=== PATIENT | male | born 1955 | race Caucasian/White ===

== ENCOUNTER 2016-11-20 09:32 | Inpatient (IN) | payer MEDICARE, OTHER ==
[2016-11-20] MEDS ORDERED: LORazepam 2 MG/ML SYRINGE IV PRN (13:18)
[2016-11-20 13:41] LABS: Basophils % (A) 1 %; CH 33.1; CHCM 32.7; Eosinophils # (A) 0.1 k/uL (0-0.7); Eosinophils % (A) 1 %; HCT 43.3 % (39.0-53.0); HDW 2.67; HGB 13.9 gm/dL (13.0-17.5); Luc # (Auto) 0.14; Luc % (Auto) 2; Lymphocytes # (A) 2.2 k/uL (1.0-4.8); Lymphocytes % (A) 31 %; MCH 32.7 pg (25.0-35.0); MCHC 32.1 g/dL (31.0-37.0); MCV 101.7 fL (80.0-100.0); Macrocytosis Slight; Mean Platelet Volume 8.8; Monocytes # (A) 0.5 k/uL (0-1.0); Monocytes % (A) 8 %; Neutrophils % (A) 57 %; RBC 4.26 m/uL (4.30-5.90); RDW 14.9 % (11.5-15.5); WBC 6.9 k/uL (3.8-10.6); WBC (Perox) 7.43
[2016-11-20 14:20] LABS: ALT 30 U/L (21-72); AST 31 U/L (17-59); Alkaline Phosphatase 65 U/L (38-126); Anion Gap 8 mmol/L; Blood Urea Nitrogen 18 mg/dL (9-20); Calcium 9.2 mg/dL (8.4-10.2); Carbon Dioxide 33 mmol/L (22-30); Chloride 106 mmol/L (98-107); Glucose 116 mg/dL (74-99); Non-African American GFR(MDRD) >60 (>60 ml/min/1.73 sqM); Potassium 3.5 mmol/L (3.5-5.1); Sodium 147 mmol/L (137-145); Total Bilirubin 0.8 mg/dL (0.2-1.3); Total Protein 5.8 g/dL (6.3-8.2)
[2016-11-20] MEDS ORDERED: RX INFO: IV CONTRAST WAS GIVEN 1 EACH MISC MISCELLANE PRN (18:11)
--- NOTE | 2016-11-20 18:18 | P.HPIM ---
History of Present Illness H&P Date: 11/20/16 Chief Complaint: seizure activity patient is a 61-year-old male who presented to the office today stating that he had multiple seizures in the last few days he fell to the floor several times and was complaining of abrasion on his right elbow in both hands he was also complaining of rib pain and neck and lower back pain, he was admitted directly to [facility] medical floor, he is maintained on multiple seizure medications, levels on Depakote and Keppra were ordered, consultation was neurology was initiated, orders for Ativan when necessary were given for any evidence of seizure activity. Patient has a remote history of a benign brain tumor, he stated that he has not been following with any neurologist or neurosurgeon in that regard Past Medical History Past Medical History: Asthma, COPD, Eye Disorder, GERD/Reflux, Hyperlipidemia, Hypertension, Musculoskeletal Disorder, Osteoarthritis (OA), Pneumonia, Seizure Disorder, Thyroid Disorder Additional Past Medical History / Comment(s): Mental retardation, has been intubated and vented d/t COPD in past, 2001 CVA-pt thinks slight R arm/R leg weakness from that, PMH indicated DVT/PE/sublclavian blockage but pt unaware, iron defiency anemia, legally blind in left eye/limited vision R eye, bronchitis , hypothyroid, DJD, rectal bleed, BPH with surgery-pt states urinary flow is slowing down again, falls-fell yesterday and states he has neck and R rib pain since, injuries to L thumb and R little finger from falls, last seizure . 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 He has been told by his physician that he needs to start using a walker. He uses the bus to get places. He has a legal guardian, Isabella Ingram. He has had falls. Smoking Status: Current every day smoker Past Alcohol Use History: None Reported Additional Past Alcohol Use History / Comment(s): <ppd-caregiver not sure how long he's smoked Past Drug Use History: None Reported - Past Family History Mother Family Medical History: Cancer Additional Family Medical History / Comment(s): Mother had colon cancer. Father History Unknown: Yes Medications and Allergies Home Medications Medication Instructions Recorded Confirmed Type Docusate [Colace] 100 mg PO DAILY 08/25/14 11/20/16 History Omeprazole 40 mg PO AC-BRKFST 08/25/14 11/20/16 History Bisacodyl [Dulcolax] 10 mg PO DAILY 05/28/16 11/20/16 History Divalproex [Depakote] 1,000 mg PO HS 05/28/16 11/20/16 History Divalproex [Depakote] 500 mg PO QAM 05/28/16 11/20/16 History hydrOXYzine HCL [Atarax] 25 mg PO HS 05/28/16 11/20/16 History Atorvastatin Calcium [Lipitor] 10 mg PO HS 11/20/16 11/20/16 History Citalopram Hydrobromide [CeleXA] 20 mg PO HS 11/20/16 11/20/16 History QUEtiapine [SEROquel] 200 mg PO HS 11/20/16 11/20/16 History levETIRAcetam 1,000 mg PO Q12HR 11/20/16 11/20/16 History Allergies Allergy/AdvReac Type Severity Reaction Status Date / Time Penicillins Allergy Unknown Verified 11/20/16 11:01 Physical Exam Vitals: Vital Signs Temp Pulse Resp BP Pulse Ox 11/20/16 15:02 68 11/20/16 15:00 97.0 F L 62 16 110/53 94 L 11/20/16 12:00 99.4 F 68 136/78 Intake and Output 11/20/16 11/20/16 11/20/16 06:59 14:59 22:59 Intake Total 120 Balance 120 Intake: Oral 120 Other: # Voids 240 Weight 63.503 kg Patient Weight 11/21/16 06:59 Weight 63.503 kg in general patient is alert and oriented 3 in no apparent distress HEENT head normocephalic and nontraumatic Neck is supple no JVD no goiter no lymphadenopathy Chest exam reveals a few scattered rhonchi no wheezing Cardiac exam reveals regular heart sounds no gallops no murmurs Abdomen is soft nontender no organomegaly with normal bowel sounds Extremity exam reveals no edema no cyanosis or Clubbing Neurological examination reveals no gross focal deficits Results CBC & Chem 7: 11/20/16 13:23 11/20/16 13:23 Labs: Abnormal Lab Results - Last 24 Hours (Table) 11/20/16 11/20/16 Range/Units 13:23 13:23 RBC 4.26 L (4.30-5.90) m/uL MCV 101.7 H (80.0-100.0) fL Plt Count 111 L (150-450) k/uL Sodium 147 H (137-145) mmol/L Carbon Dioxide 33 H (22-30) mmol/L Glucose 116 H (74-99) mg/dL Total Protein 5.8 L (6.3-8.2) g/dL Thrombosis Risk Factor Assmnt - Choose All That Apply Any of the Below Risk Factors Present?: Yes Each Factor Represents 1 point: Abnormal pulmonary function (COPD) Other Risk Factors: Yes Each Risk Factor Represents 2 Points: Age 61-74 years Other congenital or acquired thrombophilia - If yes, enter type in comment: No Thrombosis Risk Factor Assessment Total Risk Factor Score: 3 Thrombosis Risk Factor Assessment Level: Moderate Risk Assessment and Plan Plan: #1 multiple seizures in the last few days with fall to the floor with subsequent abrasion 2 upper extremities and injury to the neck and lower back, at this time will check computed tomography scan of the cervical spine will check x-ray of the lumbar spine, will check bilateral ribs x-ray, will check level on Keppra and Depakote and consult neurology for follow-up #2 history of benign brain tumor will check computed tomography scan of the brain was contrast #3 underlying history of hyperlipidemia #4 underlying history of bipolar disorder maintained on Celexa and Seroquel #5 multiple abrasions was a mild cellulitis patient was started on Cleocin 150 mg 3 times daily, we will apply also local wound care #6 medication and labs were reviewed otherwise will continue was current management will follow in a.m.
[2016-11-20] MEDS: NEOMYCIN-BACITRACIN-POLY OINT 14 GM TUBE TOPICAL SCH (19:30)
[2016-11-20] MEDS: hydrOXYzine HCL 25 MG TAB PO SCH (20:37)
[2016-11-20] MEDS: CLINDAMYCIN 150 MG CAP PO SCH ×2 (20:37→20:39)
[2016-11-20] MEDS: ATORVASTATIN 10 MG TAB PO SCH (20:38)
[2016-11-20] MEDS: CITALOPRAM HYDROBROMIDE 20 MG TAB PO SCH (20:38)
[2016-11-20] MEDS: QUEtiapine 200 MG TAB PO SCH (20:38)
[2016-11-20] MEDS: DIVALPROEX 500 MG TABLET.DR PO SCH (20:38)
[2016-11-20] MEDS: levETIRAcetam 500 MG TAB PO SCH (20:38)
--- NOTE | 2016-11-20 20:43 | P.CNNES ---
History of Present Illness Consult date: 11/20/16 Reason for Consult: Patient with multiple seizures and history of brain tumor. History of Present Illness: This patient is a 61-year-old right-handed white male who was admitted to the hospital with breakthrough seizures. Patient has a long-standing history of underlying epilepsy. He has been treated for his epilepsy with 2 anticonvulsant medications namely Depakote and Keppra. Apparently yesterday he had a short seizure that may have lasted 10-15 minutes in duration. EMS was called to the home however he refused to go to the hospital yesterday. Apparently had another seizure today lasting several minutes. He apparently took a bus and went to see his primary care physician Dr. Bean would mitigate him to the hospital today. Patient underwent a Depakote level today which came back therapeutic at 72.5. Keppra level is pending at this time. Patient states he had been doing fairly well until recently with these recent breakthrough seizures. He does have a history of benign brain tumor resection done many years ago however he is unable to provide details of the tumor type or when the surgery was performed. Patient is somewhat developmentally delayed. He does follow some simple commands easily. Apparently he did sustain a fall and struck the back of his head. He is being sent for a computed tomography scan of the brain this evening and the results are pending at this time. Patient is also being sent for computed tomography scan of the cervical spine to rule out any subluxation or fracture. Patient denies any neck pain but does have some right-sided headache pain. He states he takes his seizure medications on a regular basis. He is unable to provide the exact date of his last seizure prior to yesterday. He does follow only simple commands. He denies any headache at this time. He is now been admitted and neurology has been consulted for further evaluation and recommendations. Review of Systems Constitutional: Denies chills, Denies fever Eyes: denies blurred vision, denies pain Ears, nose, mouth and throat: Denies headache, Denies sore throat Cardiovascular: Denies chest pain, Denies shortness of breath Respiratory: Denies cough Gastrointestinal: Denies abdominal pain, Denies diarrhea, Denies nausea, Denies vomiting Musculoskeletal: Denies myalgias Integumentary: Denies pruritus, Denies rash Neurological: Denies numbness, Denies weakness Psychiatric: Reports confusion, Reports disorientation, Reports memory loss, Denies anxiety, Denies depression Endocrine: Denies fatigue, Denies weight change Past Medical History Past Medical History: Asthma, COPD, Eye Disorder, GERD/Reflux, Hyperlipidemia, Hypertension, Musculoskeletal Disorder, Osteoarthritis (OA), Pneumonia, Seizure Disorder, Thyroid Disorder Additional Past Medical History / Comment(s): Mental retardation, has been intubated and vented d/t COPD in past, 2001 CVA-pt thinks slight R arm/R leg weakness from that, PMH indicated DVT/PE/sublclavian blockage but pt unaware, iron defiency anemia, legally blind in left eye/limited vision R eye, bronchitis , hypothyroid, DJD, rectal bleed, BPH with surgery-pt states urinary flow is slowing down again, falls-fell yesterday and states he has neck and R rib pain since, injuries to L thumb and R little finger from falls, last seizure . 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 He has been told by his physician that he needs to start using a walker. He uses the bus to get places. He has a legal guardian, Isabella Ingram. He has had falls. Smoking Status: Current every day smoker Past Alcohol Use History: None Reported Additional Past Alcohol Use History / Comment(s): <ppd-caregiver not sure how long he's smoked Past Drug Use History: None Reported - Past Family History Mother Family Medical History: Cancer Additional Family Medical History / Comment(s): Mother had colon cancer. Father History Unknown: Yes Medications and Allergies Home Medications Medication Instructions Recorded Confirmed Type Docusate [Colace] 100 mg PO DAILY 08/25/14 11/20/16 History Omeprazole 40 mg PO AC-BRKFST 08/25/14 11/20/16 History Bisacodyl [Dulcolax] 10 mg PO DAILY 05/28/16 11/20/16 History Divalproex [Depakote] 1,000 mg PO HS 05/28/16 11/20/16 History Divalproex [Depakote] 500 mg PO QAM 05/28/16 11/20/16 History hydrOXYzine HCL [Atarax] 25 mg PO HS 05/28/16 11/20/16 History Atorvastatin Calcium [Lipitor] 10 mg PO HS 11/20/16 11/20/16 History Citalopram Hydrobromide [CeleXA] 20 mg PO HS 11/20/16 11/20/16 History QUEtiapine [SEROquel] 200 mg PO HS 11/20/16 11/20/16 History levETIRAcetam 1,000 mg PO Q12HR 11/20/16 11/20/16 History Allergies Allergy/AdvReac Type Severity Reaction Status Date / Time Penicillins Allergy Unknown Verified 11/20/16 11:01 Physical Examination - Vital Signs Vital Signs: Vital Signs Temp Pulse Resp BP Pulse Ox 11/20/16 15:02 68 11/20/16 15:00 97.0 F L 62 16 110/53 94 L 11/20/16 12:00 99.4 F 68 136/78 Intake and Output 11/20/16 11/20/16 11/20/16 06:59 14:59 22:59 Intake Total 120 Balance 120 Intake: Oral 120 Other: # Voids 240 Weight 63.503 kg Patient Weight 11/21/16 06:59 Weight 63.503 kg - Constitutional General appearance: average body habitus, cooperative - EENT EENT: PERRL, mucous membranes moist - Respiratory Respiratory: lungs clear, normal breath sounds - Cardiovascular Cardiovascular: regular rate, normal S1, normal S2 Extremities: no peripheral edema bilaterally - Gastrointestinal Gastrointestinal: normoactive bowel sounds - Integumentary Integumentary: normal - Neurologic Cranial nerve examination: PERRL, EOMI, VFF, V1/V2/V3 grossly intact, face symmetric, tongue midline, intact gag reflex, intact corneal reflex, normal palatal elevation Speech examination: intact Sensorimotor examination: intact Detailed motor examination: grossly full strength in all extremities Detailed sensory examination: intact Reflex and gait examination: intact Reflexes: 1+: ankle, bicep, knee, tricep - Musculoskeletal Musculoskeletal: no pain - Psychiatric Psychiatric: mood/affect appropriate, cooperative Results - Laboratory Findings CBC and BMP: 11/20/16 13:23 11/20/16 13:23 Abnormal Lab Findings: Abnormal Labs 11/20/16 11/20/16 13:23 13:23 RBC 4.26 L MCV 101.7 H Plt Count 111 L Sodium 147 H Carbon Dioxide 33 H Glucose 116 H Total Protein 5.8 L Assessment and Plan (1) Seizure disorder, complex partial Status: Acute Code(s): G40.209 - LOCAL-REL SYMPTC EPI W CMPLX PRT SEIZ,NOT NTRCT,W/O STAT EPI (2) Acute psychosis Status: Acute Code(s): F23 - BRIEF PSYCHOTIC DISORDER (3) Acute anxiety Status: Acute Code(s): F41.9 - ANXIETY DISORDER, UNSPECIFIED (4) Bipolar disorder Status: Acute Code(s): F31.9 - BIPOLAR DISORDER, UNSPECIFIED Plan: This patient is a 61-year-old male who has a history of underlying seizure disorder. He is undergone surgical resection of a probable benign tumor years ago. Patient is unable to provide details of his surgery or location of the tumor removal. He underwent a computed tomography scan of the brain today the results of which are pending. Given the finding of a normal Depakote level of 72.5 and Keppra level that is pending at this time there is concern for breakthrough seizures for this patient. We will recheck his anticonvulsant blood levels tomorrow morning. We'll obtain routine EEG tomorrow morning for further assessment. Would recommend MRI of the brain with gadolinium to rule out any new or acute brain tumor. His overall prognosis at this time remains very guarded. He should continue with seizure precautions during this admission. Case was discussed at length with the patient. All questions were answered to his satisfaction. We will continue close neurological follow-up of this patient during this admission. Time with Patient: Greater than 30
--- NOTE | 2016-11-20 21:10 | CT ---
EXAMINATION TYPE: CT brain w con DATE OF EXAM: 11/20/2016 8:29 PM COMPARISON: 11/02/2010 INDICATION: Seizure disorder. Neck pain. History of benign brain tumor. DLP: 1625.00 mGycm, Automated exposure control for dose reduction was used. CONTRAST: None CT of the brain is performed utilizing 3 mm thick sections through the posterior fossa and 3 mm thick sections through the remaining calvarium. Study is performed within 24 hours of arrival to the hosp [facility]. No abnormal hyperdensity is present to suggest an acute intracranial hemorrhage. No mass lesion is evident. No acute infarcts are evident. Ventricles and sulci are appropriate for the patient age. Paranasal sinuses and mastoid air cells within the [id number] are clear. No abnormal enhancement is evident. IMPRESSIONS: 1. No acute intracranial process.
--- NOTE | 2016-11-20 21:13 | CT ---
EXAMINATION TYPE: CT cervical spine wo con DATE OF EXAM: 11/20/2016 8:29 PM COMPARISON: NONE HISTORY: Seizure disorder. Neck pain. History of benign brain tumor. CT DLP: 1625.00 mGycm Automated exposure control for dose reduction was used. TECHNIQUE: CT scan of the cervical spine is obtained without contrast, axial images are obtained, sa gittal and coronal reformatted images are also reviewed. FINDINGS: C6-7 may has some broad-based left paracentral disc bulge. Cervical correlation is recommen ded. MRI could be performed if clinically indicated. No acute fractures are evident. No spinal canal stenosis is present. Degenerative disc changes are pr esent C5-C6. Some scoliosis is present which can be positional. There is straightening of the cervica l spine in the sagittal plane which may be positional. Minimal retrolisthesis of C5 on C6 is present can be related to degenerative changes. Loss of disc height C5-6. IMPRESSION: 1. Degenerative disc changes C5-6. A minimal grade 1 retrolisthesis of C5 on C6 may be present. 2. Straightening of the cervical spine on the sagittal projection with some scoliosis present in the coronal plane. 3. Some left paracentral disc bulging may be present at C5-C6.
[2016-11-21] MEDS: LEVOTHYROXINE 25 MCG TAB PO SCH (06:20)
[2016-11-21] MEDS: CLINDAMYCIN 150 MG CAP PO SCH ×3 (07:30→21:15)
[2016-11-21] MEDS: levETIRAcetam 500 MG TAB PO SCH ×2 (07:31→21:15)
[2016-11-21] MEDS: PANTOPRAZOLE 40 MG TABLET PO SCH (07:31)
[2016-11-21] MEDS: ASPIRIN 81 MG CHEW PO SCH (07:31)
[2016-11-21] MEDS: DOCUSATE 100 MG CAP PO SCH (07:31)
[2016-11-21] MEDS: DIVALPROEX 500 MG TABLET.DR PO SCH ×2 (07:31→21:16)
[2016-11-21] MEDS: NEOMYCIN-BACITRACIN-POLY OINT 14 GM TUBE TOPICAL SCH (07:32)
[2016-11-21] MEDS: BISACODYL 5 MG TABLET.DR PO SCH (07:35)
[2016-11-21 09:13] LABS: Basophils % (A) 0 %; CHCM 33.8; Eosinophils # (A) 0.2 k/uL (0-0.7); Eosinophils % (A) 3 %; HCT 40.6 % (39.0-53.0); HDW 2.79; HGB 13.7 gm/dL (13.0-17.5); Luc # (Auto) 0.17; Luc % (Auto) 3; Lymphocytes # (A) 2.2 k/uL (1.0-4.8); Lymphocytes % (A) 37 %; MCHC 33.7 g/dL (31.0-37.0); MCV 97.8 fL (80.0-100.0); Mean Platelet Volume 8.4; Monocytes # (A) 0.6 k/uL (0-1.0); Monocytes % (A) 10 %; Neutrophils # (A) 2.7 k/uL (1.3-7.7); Neutrophils % (A) 47 %; RBC 4.15 m/uL (4.30-5.90); RDW 14.6 % (11.5-15.5); WBC 5.8 k/uL (3.8-10.6); WBC (Perox) 5.68
[2016-11-21 10:17] LABS: ALT 29 U/L (21-72); AST 27 U/L (17-59); Alkaline Phosphatase 64 U/L (38-126); Anion Gap 8 mmol/L; Blood Urea Nitrogen 18 mg/dL (9-20); Calcium 8.9 mg/dL (8.4-10.2); Carbon Dioxide 33 mmol/L (22-30); Chloride 105 mmol/L (98-107); Glucose 83 mg/dL (74-99); Non-African American GFR(MDRD) >60 (>60 ml/min/1.73 sqM); Potassium 3.6 mmol/L (3.5-5.1); Sodium 146 mmol/L (137-145); Total Bilirubin 0.8 mg/dL (0.2-1.3); Total Protein 5.5 g/dL (6.3-8.2)
--- NOTE | 2016-11-21 11:48 | P.PN ---
Subjective Breakthrough seizure Patient has had no seizures through the night. EEG completed this morning. Awaiting results. MRI of the brain scheduled this afternoon. Patient denies any chest pain or shortness of breath. Denies any nausea or vomiting. Has regular bowel movement. Denies any difficulty urinating. Objective - Vital Signs Vital signs: Vital Signs Temp 97.9 F 11/21/16 07:00 Pulse 70 11/21/16 08:00 Resp 16 11/21/16 08:00 BP 114/64 11/21/16 07:00 Pulse Ox 93 L 11/21/16 07:00 Intake & Output 11/20/16 11/21/16 11/21/16 18:59 06:59 18:59 Intake Total 120 50 Output Total 100 100 Balance 120 -50 -100 Weight 63.503 kg 63.503 kg Intake: Oral 120 50 Output: Urine 100 100 Other: # Voids 240 3 - Exam Head normocephalic Neck supple Lungs clear to auscultation bilaterally no wheezing or crackles Heart regular rate and rhythm S1-S2, no rub or gallop Abdomen is soft nontender nondistended positive bowel sounds no hepatosplenomegaly Extremities no edema Neuro alert and orientated to 3 - Labs CBC & Chem 7: 11/21/16 07:27 11/21/16 07:27 Labs: Abnormal Lab Results - Last 24 Hours (Table) 11/20/16 11/20/16 11/21/16 Range/Units 13:23 13:23 07:27 RBC 4.26 L 4.15 L (4.30-5.90) m/uL MCV 101.7 H (80.0-100.0) fL Plt Count 111 L 112 L (150-450) k/uL Sodium 147 H (137-145) mmol/L Carbon Dioxide 33 H (22-30) mmol/L Glucose 116 H (74-99) mg/dL Total Protein 5.8 L (6.3-8.2) g/dL Albumin (3.5-5.0) g/dL 11/21/16 Range/Units 07:27 RBC (4.30-5.90) m/uL MCV (80.0-100.0) fL Plt Count (150-450) k/uL Sodium 146 H (137-145) mmol/L Carbon Dioxide 33 H (22-30) mmol/L Glucose (74-99) mg/dL Total Protein 5.5 L (6.3-8.2) g/dL Albumin 3.2 L (3.5-5.0) g/dL Assessment and Plan Plan: 1. Seizure disorder with breakthrough seizures: Neurology consulted. Patient scheduled for EEG and MRI of the brain today. Keppra level pending. Depakote level within normal range. Patient had computed tomography scan of the brain which was negative. Computed tomography scan of the spine showed degenerative changes and disc bulge at seen 5 to C6. #2 history of benign brain tumor MRI of the brain ordered by neurology #3 underlying history of hyperlipidemia #4 underlying history of bipolar disorder maintained on Celexa and Seroquel #5 multiple abrasions was a mild cellulitis patient was started on Cleocin 150 mg 3 times daily, we will apply also local wound care #6 nicotine dependence: Discussed smoking cessation. Add nicotine patch Consult physical therapy I performed an examination of the patient and discussed their management with the physician Splitter Operator. I have reviewed the Physician Splitter Operator's notes and agree with the documented findings and plan of care
[2016-11-21] MEDS: NICOTINE 21MG/24HR PATCH TRANSDERM SCH (12:24)
--- NOTE | 2016-11-21 17:43 | MR ---
EXAMINATION TYPE: MR brain wo/w con DATE OF EXAM: 11/21/2016 4:59 PM COMPARISON: CT brain 11/20/2016 HISTORY: Brain tumor, seizures CONTRAST: Performed utilizing 15 mL intravenous MultiHance gadolinium contrast. TECHNIQUE: Multiplanar, multiecho imaging on a 3.0 Heike magnet is performed through the brain. Stud y is performed within 24 hours of arrival to the hospital. The craniovertebral junction is normal. The pituitary is normal. Temporal lobes are symmetrical. Diffusion-weighted imaging is performed. No abnormal hyperintensity is present to suggest an acute i ntracranial infarct or acute ischemic change. There are scattered punctate areas of hyperintensity on T2 and Inversion Recovery weighted sequences which are non-specific but can be related to microvascular ischemic changes. Ventricles and sulci are prominent for the patient age. Focal encephalomalacia is not evident. There is some prominence of the right cerebellar pontine angle . The lesion is reported to be in the left posterior parietal-occipital region. The hypointense signa l within this region on inversion recovery weighted sequences and hyperintense signal on T2-weighted sequences appears stable. This measures 1.0 cm in length. No suspicious enhancement is evident. IMPRESSIONS: 1. Mild periventricular white matter changes. 2. Atrophy. 3. Stable signal changes within the left occipital region vertex.
[2016-11-21] MEDS: ATORVASTATIN 10 MG TAB PO SCH (21:15)
[2016-11-21] MEDS: CITALOPRAM HYDROBROMIDE 20 MG TAB PO SCH (21:16)
[2016-11-21] MEDS: QUEtiapine 200 MG TAB PO SCH (21:16)
[2016-11-21] MEDS: hydrOXYzine HCL 25 MG TAB PO SCH (21:16)
--- NOTE | 2016-11-21 22:37 | P.PN ---
Subjective This patient is a 61-year-old male who was admitted yesterday for symptoms of breakthrough seizures. Patient has a history of underlying seizure disorder. He has been treated for his seizures and is currently taking combination of Depakote and Keppra. He was admitted to hospital yesterday after suffering 2 breakthrough seizures. His Depakote level yesterday on admission was therapeutic. He underwent repeat anticonvulsant blood levels this morning and his Depakote level remains therapeutic at 87.1. His Keppra level came back therapeutic at 33.7. Patient was sent for MRI of the brain today for further evaluation. MRI reveals periventricular white matter changes. There was cortical atrophy noted. Stable signal changes were noted in the left occipital lobe. The patient was also sent for routine EEG today. He has remained seizure -free since admission yesterday. His EEG was reviewed and fails to reveal any evidence of underlying seizure disorder. As noted both of his anticonvulsant medications are also in the normal level. We will continue close neurological follow-up for this patient. Hopefully patient will be able to be discharged home tomorrow. His overall prognosis at this time remains guarded. Objective - Vital Signs Vital signs: Vital Signs Temp 99.2 F 11/21/16 15:00 Pulse 88 11/21/16 15:43 Resp 18 11/21/16 15:43 BP 110/50 11/21/16 15:00 Pulse Ox 92 L 11/21/16 15:00 Intake & Output 11/21/16 11/21/16 11/22/16 06:59 18:59 06:59 Intake Total 50 850 Output Total 100 300 Balance -50 550 Weight 63.503 kg Intake: Oral 50 850 Output: Urine 100 300 Other: Voiding Method Toilet # Voids 3 3 - Exam Physical examination: PHYSICAL EXAMINATION: Patient is resting comfortably in bed. VITAL SIGNS: Blood pressure is [110/50]. Heart rate is [88]. Respiration is [18] . Temperature is [99.2]. HEENT: Head is atraumatic, neck is supple, there were no carotid bruits. CHEST: Lungs are clear to auscultation and percussion. CARDIAC: S1, S2 normal rate and rhythm. There is no murmur. ABDOMEN: Soft and nontender. Bowel sounds are present. EXTREMITIES: There is no pedal edema. Peripheral pulses are present. Neurological examination: Patient's neurological examination is unchanged from yesterday. There is been no significant changes in his overall neurological examination today. - Labs CBC & Chem 7: 11/21/16 07:27 11/21/16 07:27 Labs: Abnormal Lab Results - Last 24 Hours (Table) 11/21/16 11/21/16 Range/Units 07: 07:27 RBC 4.15 L (4.30-5.90) m/uL Plt Count 112 L (150-450) k/uL Sodium 146 H (137-145) mmol/L Carbon Dioxide 33 H (22-30) mmol/L Total Protein 5.5 L (6.3-8.2) g/dL Albumin 3.2 L (3.5-5.0) g/dL Assessment and Plan (1) Seizure disorder, complex partial Status: Acute Code(s): G40.209 - LOCAL-REL SYMPTC EPI W CMPLX PRT SEIZ,NOT NTRCT,W/O STAT EPI (2) Acute psychosis Status: Acute Code(s): F23 - BRIEF PSYCHOTIC DISORDER (3) Acute anxiety Status: Acute Code(s): F41.9 - ANXIETY DISORDER, UNSPECIFIED (4) Bipolar disorder Status: Acute Code(s): F31.9 - BIPOLAR DISORDER, UNSPECIFIED Plan: This patient is a 61-year-old male being evaluated for recent breakthrough seizures. Patient underwent anticonvulsant blood testing today and his Depakote level is therapeutic at 87.1. Keppra level is also therapeutic at 33.7. He underwent a routine EEG today which is reviewed and is negative for any evidence of underlying seizure focus. No epileptiform discharges were seen. All of his test results were discussed today with the patient in detail. He is being considered for possible discharge home tomorrow. We will continue to follow his overall progress closely during this admission. Patient is advised of the [place] driving law which states he should not drive prepared to 6 months following his last seizure. He states he is aware of this driving restriction for seizure patients. His overall prognosis at this time remains guarded.
[2016-11-22] MEDS: LEVOTHYROXINE 25 MCG TAB PO SCH (06:09)
[2016-11-22] MEDS: PANTOPRAZOLE 40 MG TABLET PO SCH (06:58)
[2016-11-22] MEDS: BISACODYL 5 MG TABLET.DR PO SCH (06:59)
[2016-11-22] MEDS: ASPIRIN 81 MG CHEW PO SCH (06:59)
[2016-11-22] MEDS: CLINDAMYCIN 150 MG CAP PO SCH (06:59)
[2016-11-22] MEDS: DIVALPROEX 500 MG TABLET.DR PO SCH (07:00)
[2016-11-22] MEDS: levETIRAcetam 500 MG TAB PO SCH (07:00)
[2016-11-22] MEDS: DOCUSATE 100 MG CAP PO SCH (07:01)
[2016-11-22] MEDS: NEOMYCIN-BACITRACIN-POLY OINT 14 GM TUBE TOPICAL SCH (07:01)
[2016-11-22] MEDS: NICOTINE 21MG/24HR PATCH TRANSDERM SCH (07:02)
[2016-11-22 07:40] LABS: Basophils % (A) 0 %; CH 33.4; CHCM 33.8; Eosinophils # (A) 0.1 k/uL (0-0.7); Eosinophils % (A) 2 %; HCT 41.7 % (39.0-53.0); HGB 13.8 gm/dL (13.0-17.5); Luc # (Auto) 0.18; Luc % (Auto) 3; Lymphocytes # (A) 2.2 k/uL (1.0-4.8); Lymphocytes % (A) 37 %; MCH 32.8 pg (25.0-35.0); MCHC 33.1 g/dL (31.0-37.0); MCV 99.2 fL (80.0-100.0); Mean Platelet Volume 8.5; Monocytes # (A) 0.6 k/uL (0-1.0); Monocytes % (A) 10 %; Neutrophils # (A) 2.9 k/uL (1.3-7.7); Neutrophils % (A) 48 %; RBC 4.21 m/uL (4.30-5.90); RDW 14.7 % (11.5-15.5); WBC (Perox) 5.84
[2016-11-22 07:50] VITALS: BP 125/57; PULSE 70; RESP 16; TEMP 97.7
[2016-11-22 07:58] LABS: ALT 31 U/L (21-72); AST 26 U/L (17-59); Alkaline Phosphatase 63 U/L (38-126); Anion Gap 6 mmol/L; Blood Urea Nitrogen 23 mg/dL (9-20); Carbon Dioxide 33 mmol/L (22-30); Chloride 106 mmol/L (98-107); Glucose 85 mg/dL (74-99); Non-African American GFR(MDRD) >60 (>60 ml/min/1.73 sqM); Potassium 4.1 mmol/L (3.5-5.1); Sodium 145 mmol/L (137-145); Total Bilirubin 0.8 mg/dL (0.2-1.3); Total Protein 5.9 g/dL (6.3-8.2)
--- NOTE | 2016-11-22 11:14 | EEG ---
DATE OF SERVICE: 11/21/2016 INDICATIONS FOR EXAMINATION: This patient is a 61-year-old male admitted with breakthrough seizures. AGE: 61Y EEG FINDINGS: A routine 21-channel, awake digital EEG recording was accomplished utilizing the 10 - 20 international system with bipolar and referential montages. The background activity in the most alert resting state consists of a low to medium amplitude, fairly well-developed and well-sustained 6 - 7 Hz activity over the posterior head regions. This posterior rhythm attenuates to eye opening. There is a small amount of low amplitude 18 - 20 Hz beta activity seen maximally over the anterior head regions. Muscle and movement artifact was observed on several occasions during the tracing. Hyperventilation was not performed. Photic stimulation at flash frequencies of 2 - 30 Hz produced a minimal occipital driving response. On one occasion, a generalized sharp wave was noted. No muscle equivalent changes were noted. IMPRESSION: This EEG is moderately abnormal in diffuse fashion due to slowing of the EEG background. The EEG failed to reveal any focal, lateralized or epileptiform abnormalities. Clinical correlation is recommended.
--- NOTE | 2016-11-22 11:52 | P.DS ---
Providers Date of admission: 11/20/16 09:46 Expected date of discharge: 11/22/16 Attending physician: Caesar Bean Consults: 11/20/16 13:16 Consult Physician Routine Consulting Provider: Shwetha Hernandes Consult Reason/Comments: multiple seizures Do you want consulting provider notified?: Yes Primary care physician: Caesar Vikas [facility] Course: Discharge diagnosis 1. Seizure disorder, complex partial with breakthrough seizures: Evaluated by neurology. Keppra and Depakote levels within normal range. Patient had computed tomography scan of the brain which was negative. Computed tomography scan of the spine showed degenerative changes and disc bulge at C 5 to C6. EEG negative for any seizure activity. MRI of the brain shows mild periventricular white matter changes, atrophy, stable signal changes within the left occipital region vertex. #2 history of benign brain tumor MRI of the brain ordered by neurology #3 underlying history of hyperlipidemia #4 underlying history of bipolar disorder maintained on Celexa and Seroquel #5 multiple abrasions was a mild cellulitis patient was started on Cleocin 150 mg 3 times daily continue for 5 days #6 nicotine dependence: Discussed smoking cessation. Hospital course This is a 61-year-old male who has a known seizure disorder who initially presented to Dr. Monisha pedraza's office after having multiple seizures in the last few days. He also had fallen to the floor several times and was complaining of abrasions on the right elbow and hands. He also had some neck lower back pain and rib pain. He was admitted to [facility]. Neurology was consulted. Depakote and Keppra levels checked and were within normal range. Computed tomography scan of the brain was negative. Computed tomography scan of the cervical spine had shown degenerative disease disc changes and disc bulge at C5 and C6. EEG negative for any seizure activity. MRI of the brain shows mild periventricular white matter changes, atrophy, stable signal changes within the left occipital region vertex. Patient has had no further seizure activity. He is stable for discharge. His pain has resolved. He will continue Cleocin for 5 more days for his mild cellulitis and abrasion on the hands and elbow. Evaluated by physical therapy and they're recommending walker. Prescription for walker was given to the complex case manager. Patient is medical stable for discharge. Patient again was notified with the [place] driving law that she cannot drive 6 months after having a seizure. Patient is aware of this. Please refer to chart for any further details. Patient will follow-up with Dr. Bean in 1 week. Patient Condition at Discharge: Stable Plan - Discharge Summary New Discharge Prescriptions: Clindamycin [Cleocin] 150 mg PO TID #15 cap Discharge Medication List Aspirin EC [Ecotrin Low Dose] 81 mg PO DAILY #30 tablet. 04/11/14 [Rx] Levothyroxine Sodium [Synthroid] 25 mcg PO DAILY #30 tab 04/11/14 [Rx] Docusate [Colace] 100 mg PO DAILY 08/25/14 [History] Omeprazole 40 mg PO AC-BRKFST 08/25/14 [History] Bisacodyl [Dulcolax] 10 mg PO DAILY 05/28/16 [History] Divalproex [Depakote] 1,000 mg PO HS 05/28/16 [History] Divalproex [Depakote] 500 mg PO QAM 05/28/16 [History] hydrOXYzine HCL [Atarax] 25 mg PO HS 05/28/16 [History] Atorvastatin Calcium [Lipitor] 10 mg PO HS 11/20/16 [History] Citalopram Hydrobromide [CeleXA] 20 mg PO HS 11/20/16 [History] QUEtiapine [SEROquel] 200 mg PO HS 11/20/16 [History] levETIRAcetam 1,000 mg PO Q12HR 11/20/16 [History] Clindamycin [Cleocin] 150 mg PO TID #15 cap 11/22/16 [Rx] Follow up Appointment(s)/Referral(s): Caesar Bean MD [Primary Care Provider] - 1 Week Activity/Diet/Wound Care/Special Instructions: [facility]-[phone] Diet:Regular Activity: as tolerated. No driving for 6 months Discharge Disposition: HOME WITH HOME HEALTH SERVICES
== END 2016-11-22 14:00 | disposition home health service (06) | DRG 101 ==
LOC: 5MS5E 09:46
PROVIDERS: ADMIT Internal Medicine; ATTEND Internal Medicine
DX: G40.209 Localization-related (focal) (partial) symptomatic epilepsy and epileptic syndromes with complex partial seizures, not intractable, without status epilepticus (principal); F25.9 Schizoaffective disorder, unspecified; I10 Essential (primary) hypertension; L03.113 Cellulitis of right upper limb; L03.114 Cellulitis of left upper limb; E03.9 Hypothyroidism, unspecified; E78.5 Hyperlipidemia, unspecified; F17.200 Nicotine dependence, unspecified, uncomplicated; F31.9 Bipolar disorder, unspecified; F41.9 Anxiety disorder, unspecified; F79 Unspecified intellectual disabilities; H54.42 Blindness, left eye, normal vision right eye; J44.9 Chronic obstructive pulmonary disease, unspecified; J45.909 Unspecified asthma, uncomplicated; K21.9 Gastro-esophageal reflux disease without esophagitis; N40.0 Benign prostatic hyperplasia without lower urinary tract symptoms; S50.311A Abrasion of right elbow, initial encounter; W18.30XA Fall on same level, unspecified, initial encounter; Z79.899 Other long term (current) drug therapy; Z86.011 Personal history of benign neoplasm of the brain; Z86.73 Personal history of transient ischemic attack (TIA), and cerebral infarction without residual deficits
CPT/HCPCS: 70460; 70553; 72125; 80053; 80164; 80177; 85025; 95816

== ENCOUNTER 2016-12-03 16:25 | Emergency (ER) | payer MEDICARE, OTHER ==
--- NOTE | 2016-12-03 16:47 | ED ---
General Adult HPI - General Chief complaint: Psychiatric Symptoms Stated complaint: Mental Health Time Seen by Provider: 12/03/16 16:27 Source: patient, EMS, RN notes reviewed Mode of arrival: EMS Limitations: no limitations - History of Present Illness Initial comments: 61-year-old male presents emergency department via EMS for increased weakness. Patient apparently tried to flag down EMS yesterday as he thought this was large transit. EMS did discuss with the oracle business analyst that the patient normally patient states he feels very weak and states that he has lower extremity weakness states it is unable to barely move them. Patient denies any depression or suicidal thoughts. Patient does admit to some intermittent confusion. Patient denies chest pain or shortness breath. Patient denies any alcohol or any drug use. does ride the bus and has been having increased weakness and some confusion. - Related Data Home Medications Medication Instructions Recorded Confirmed Docusate [Colace] 100 mg PO DAILY 08/25/14 12/03/16 Omeprazole 40 mg PO AC-BRKFST 08/25/14 12/03/16 Bisacodyl [Dulcolax] 10 mg PO DAILY 05/28/16 12/03/16 Divalproex [Depakote] 1,000 mg PO HS 05/28/16 12/03/16 Divalproex [Depakote] 500 mg PO QA 05/28/16 12/03/16 hydrOXYzine HCL [Atarax] 25 mg PO HS 05/28/16 12/03/16 Atorvastatin Calcium [Lipitor] 10 mg PO HS 11/20/16 12/03/16 Citalopram Hydrobromide [CeleXA] 20 mg PO HS 11/20/16 12/03/16 QUEtiapine [SEROquel] 200 mg PO HS 11/20/16 12/03/16 levETIRAcetam 1,000 mg PO Q12HR 11/20/16 12/03/16 busPIRone HCL [Buspar] 30 mg PO BID 12/03/16 12/03/16 Previous Rx's Medication Instructions Recorded Aspirin EC [Ecotrin Low Dose] 81 mg PO DAILY #30 tablet. 04/11/14 Levothyroxine Sodium [Synthroid] 25 mcg PO DAILY #30 tab 04/11/14 Allergies Allergy/AdvReac Type Severity Reaction Status Date / Time Penicillins Allergy Unknown Verified 12/03/16 16:46 Review of Systems ROS Statement: Those systems with pertinent positive or pertinent negative responses have been documented in the HPI. ROS Other: All systems not noted in ROS Statement are negative. Past Medical History Past Medical History: Asthma, COPD, Eye Disorder, GERD/Reflux, Hyperlipidemia, Hypertension, Musculoskeletal Disorder, Osteoarthritis (OA), Pneumonia, Seizure Disorder, Thyroid Disorder Additional Past Medical History / Comment(s): Mental retardation, has been intubated and vented d/t COPD in past, 2001 CVA-pt thinks slight R arm/R leg weakness from that, PMH indicated DVT/PE/sublclavian blockage but pt unaware, iron defiency anemia, legally blind in left eye/limited vision R eye, bronchitis , hypothyroid, DJD, rectal bleed, BPH with surgery-pt states urinary flow is slowing down again, falls-fell yesterday and states he has neck and R rib pain since, injuries to L thumb and R little finger from falls, last seizure . History of Any Multi-Drug Resistant Organisms: None Reported Past Surgical History: Prostate Surgery Additional Past Surgical History / Comment(s): Cystoscopy/TURP, EGD/colonoscopy with benign polypectomy, hemorrhoidectomy, L toes repaired-partial amp, Past Anesthesia/Blood Transfusion Reactions: No Reported Reaction Past Psychological History: Bipolar, Depression, Schizoaffective Disorder Additional Psychological History / Comment(s): Pt now resides with his process line operator. He has been told by his physician that he needs to start using a walker. He uses the bus to get places. He has a legal guardian, Isabella Ingram. He has had falls. Smoking Status: Current every day smoker Past Alcohol Use History: None Reported Additional Past Alcohol Use History / Comment(s): <ppd-caregiver not sure how long he's smoked Past Drug Use History: None Reported - Past Family History Mother Family Medical History: Cancer Additional Family Medical History / Comment(s): Mother had colon cancer. Father History Unknown: Yes General Exam Limitations: no limitations General appearance: alert, in no apparent distress Head exam: Present: atraumatic, normocephalic, normal inspection Eye exam: Present: normal appearance, PERRL, EOMI. Absent: scleral icterus, conjunctival injection, periorbital swelling ENT exam: Present: mucous membranes moist. Absent: normal exam, normal oropharynx Neck exam: Present: normal inspection. Absent: tenderness, meningismus, lymphadenopathy Respiratory exam: Present: normal lung sounds bilaterally. Absent: respiratory distress, wheezes, rales, rhonchi, stridor Cardiovascular Exam: Present: regular rate, normal rhythm, normal heart sounds. Absent: systolic murmur, diastolic murmur, rubs, gallop, clicks GI/Abdominal exam: Present: soft, normal bowel sounds. Absent: distended, tenderness, guarding, rebound, rigid Extremities exam: Present: other (Strength of lower extremities 4/5 pedal pulses equal bilaterally) Back exam: Present: full ROM. Absent: tenderness Neurological exam: Present: alert, CN II-XII intact. Absent: oriented X3 (x2) Skin exam: Present: warm, dry, intact, normal color. Absent: rash Course Vital Signs 12/03/16 12/03/16 16:27 17:46 Temperature 99.1 F Pulse Rate 72 65 Respiratory 18 16 Rate Blood Pressure 166/77 146/70 O2 Sat by Pulse 95 94 L Oximetry EKG Findings - EKG Comments: EKG Findings:: EKG performed at 17:05 sinus rhythm with short MT rate of 76 MT interval 110 QRS duration 82, QT/QTC 386/434 Medical Decision Making - Medical Decision Making 61-year-old male presented for lower extremity weakness, confusion difficulty with gait. Patient's lab work essentially unremarkable though CT shows NPH type changes. Patient's gait disturbance is new onset for him. If concerns that the patient may need a shunt in neural surgeon evaluation. I did discuss case with Murtaza Huertas who accepts transfer. - Lab Data Result diagrams: 12/03/16 16:56 12/03/16 16:56 Lab Results 12/03/16 12/03/16 12/03/16 Range/Units 16:56 16:56 16:56 WBC 5.2 (3.8-10.6) k/uL RBC 4.38 (4.30-5.90) m/uL Hgb 14.4 (13.0-17.5) gm/dL Hct 44.2 (39.0-53.0) % MCV 101.0 H (80.0-100.0) fL MCH 32.9 (25.0-35.0) pg MCHC 32.5 (31.0-37.0) g/dL RDW 14.9 (11.5-15.5) % Plt Count 126 L (150-450) k/uL Neutrophils % 51 % Lymphocytes % 33 % Monocytes % 10 % Eosinophils % 2 % Basophils % 1 % Neutrophils # 2.6 (1.3-7.7) k/uL Lymphocytes # 1.7 (1.0-4.8) k/uL Monocytes # 0.5 (0-1.0) k/uL Eosinophils # 0.1 (0-0.7) k/uL Basophils # 0.0 (0-0.2) k/uL Macrocytosis Slight PT 12.8 H (9.0-12.0) sec INR 1.3 (<1.1) APTT 23.4 (22.0-30.0) sec Sodium 147 H (137-145) mmol/L Potassium 4.4 (3.5-5.1) mmol/L Chloride 105 (98-107) mmol/L Carbon Dioxide 35 H (22-30) mmol/L Anion Gap 7 mmol/L BUN 31 H (9-20) mg/dL Creatinine 0.95 (0.66-1.25) mg/dL Est GFR (MDRD) Af Amer >60 (>60 ml/min/1.73 sqM) Est GFR (MDRD) Non-Af >60 (>60 ml/min/1.73 sqM) Glucose 102 H (74-99) mg/dL POC Glucose (mg/dL) (75-99) mg/dL POC Glu [employer] Regrooving Machine Operator ID Calcium 9.4 (8.4-10.2) mg/dL Magnesium 1.8 (1.6-2.3) mg/dL Total Bilirubin 0.8 (0.2-1.3) mg/dL AST 35 (17-59) U/L ALT 31 (21-72) U/L Alkaline Phosphatase 72 (38-126) U/L Total Protein 6.8 (6.3-8.2) g/dL Albumin 4.1 (3.5-5.0) g/dL Lipase 66 (23-300) U/L Urine Color Urine Appearance (Clear) Urine pH (5.0-8.0) Ur Specific Aristes (1.001-1.035) Urine Protein (Negative) Urine Glucose (UA) (Negative) Urine Ketones (Negative) Urine Blood (Negative) Urine Nitrite (Negative) Urine Bilirubin (Negative) Urine Urobilinogen (<2.0) mg/dL Ur Leukocyte Esterase (Negative) Urine Opiates Screen (NotDetected) Ur Oxycodone Screen (NotDetected) Urine Methadone Screen (NotDetected) Ur Propoxyphene Screen (NotDetected) Ur Barbiturates Screen (NotDetected) U Tricyclic Antidepress (NotDetected) Ur Phencyclidine Scrn (NotDetected) Ur Amphetamines Screen (NotDetected) U Methamphetamines Scrn (NotDetected) U Benzodiazepines Scrn (NotDetected) Urine Cocaine Screen (NotDetected) U Marijuana (THC) Screen (NotDetected) 12/03/16 12/03/16 Range/Units 17:09 17:20 WBC (3.8-10.6) k/uL RBC (4.30-5.90) m/uL Hgb (13.0-17.5) gm/dL Hct (39.0-53.0) % MCV (80.0-100.0) fL MCH (25.0-35.0) pg MCHC (31.0-37.0) g/dL RDW (11.5-15.5) % Plt Count (150-450) k/uL Neutrophils % % Lymphocytes % % Monocytes % % Eosinophils % % Basophils % % Neutrophils # (1.3-7.7) k/uL Lymphocytes # (1.0-4.8) k/uL Monocytes # (0-1.0) k/uL Eosinophils # (0-0.7) k/uL Basophils # (0-0.2) k/uL Macrocytosis PT (9.0-12.0) sec INR (<1.1) APTT (22.0-30.0) sec Sodium (137-145) mmol/L Potassium (3.5-5.1) mmol/L Chloride (98-107) mmol/L Carbon Dioxide (22-30) mmol/L Anion Gap mmol/L BUN (9-20) mg/dL Creatinine (0.66-1.25) mg/dL Est GFR (MDRD) Af Amer (>60 ml/min/1.73 sqM) Est GFR (MDRD) Non-Af (>60 ml/min/1.73 sqM) Glucose (74-99) mg/dL POC Glucose (mg/dL) 102 H (75-99) mg/dL POC Glu [employer]rooving Machine Operator ID [place] Calcium (8.4-10.2) mg/dL Magnesium (1.6-2.3) mg/dL Total Bilirubin (0.2-1.3) mg/dL AST (17-59) U/L ALT (21-72) U/L Alkaline Phosphatase (38-126) U/L Total Protein (6.3-8.2) g/dL Albumin (3.5-5.0) g/dL Lipase (23-300) U/L Urine Color Yellow Urine Appearance Clear (Clear) Urine pH 6.0 (5.0-8.0) Ur Specific Aristes 1.023 (1.001-1.035) Urine Protein Trace H (Negative) Urine Glucose (UA) Negative (Negative) Urine Ketones Negative (Negative) Urine Blood Negative (Negative) Urine Nitrite Negative (Negative) Urine Bilirubin Negative (Negative) Urine Urobilinogen 2.0 (<2.0) mg/dL Ur Leukocyte Esterase Negative (Negative) Urine Opiates Screen Not Detected (NotDetected) Ur Oxycodone Screen Not Detected (NotDetected) Urine Methadone Screen Not Detected (NotDetected) Ur Propoxyphene Screen Not Detected (NotDetected) Ur Barbiturates Screen Not Detected (NotDetected) U Tricyclic Antidepress Detected H (NotDetected) Ur Phencyclidine Scrn Not Detected (NotDetected) Ur Amphetamines Screen Not Detected (NotDetected) U Methamphetamines Scrn Not Detected (NotDetected) U Benzodiazepines Scrn Not Detected (NotDetected) Urine Cocaine Screen Not Detected (NotDetected) U Marijuana (THC) Screen Not Detected (NotDetected) Disposition Clinical Impression: Gait disturbance, Weakness of both lower extremities, Confusion, NPH (normal pressure hydrocephalus) Disposition: OTHER INSTITUTION NOT DEFINED Condition: Stable - Out of Hospital Transfer - Req. Specs Out of Hospital Transfer - Requested Specifics: Other Emergency Center ([facility])
[2016-12-03 17:11] LABS: Glucose,Whole Blood 102 mg/dL (75-99)
[2016-12-03 17:30] LABS: Basophils % (A) 1 %; CH 33.3; CHCM 33.1; Eosinophils # (A) 0.1 k/uL (0-0.7); Eosinophils % (A) 2 %; HCT 44.2 % (39.0-53.0); HDW 2.68; HGB 14.4 gm/dL (13.0-17.5); Luc % (Auto) 4; Lymphocytes # (A) 1.7 k/uL (1.0-4.8); Lymphocytes % (A) 33 %; MCH 32.9 pg (25.0-35.0); MCHC 32.5 g/dL (31.0-37.0); Macrocytosis Slight; Mean Platelet Volume 8.4; Monocytes # (A) 0.5 k/uL (0-1.0); Monocytes % (A) 10 %; Neutrophils # (A) 2.6 k/uL (1.3-7.7); Neutrophils % (A) 51 %; RBC 4.38 m/uL (4.30-5.90); RDW 14.9 % (11.5-15.5); WBC 5.2 k/uL (3.8-10.6); WBC (Perox) 4.79
[2016-12-03 17:38] LABS: Appearance,Urine Clear (Clear); Bilirubin,Urine Negative (Negative); Glucose,Urine (UA) Negative (Negative); Ketones,Urine Negative (Negative); Leukocyte Esterase,Urine Negative (Negative); Nitrite,Urine Negative (Negative); Protein,Urine Trace (Negative); Specific Gravity,Urine 1.023 (1.001-1.035); UA Billing (MACRO vs. MICRO) CHEM
[2016-12-03 17:38] LABS: INR 1.3 (<1.1); Partial Thromboplastin Time 23.4 sec (22.0-30.0); Prothrombin Time 12.8 sec (9.0-12.0)
[2016-12-03 17:40] LABS: ALT 31 U/L (21-72); AST 35 U/L (17-59); Alkaline Phosphatase 72 U/L (38-126); Anion Gap 7 mmol/L; Blood Urea Nitrogen 31 mg/dL (9-20); Calcium 9.4 mg/dL (8.4-10.2); Carbon Dioxide 35 mmol/L (22-30); Chloride 105 mmol/L (98-107); Glucose 102 mg/dL (74-99); Magnesium 1.8 mg/dL (1.6-2.3); Non-African American GFR(MDRD) >60 (>60 ml/min/1.73 sqM); Potassium 4.4 mmol/L (3.5-5.1); Sodium 147 mmol/L (137-145); Total Bilirubin 0.8 mg/dL (0.2-1.3); Total Protein 6.8 g/dL (6.3-8.2)
--- NOTE | 2016-12-03 17:43 | CT ---
EXAMINATION TYPE: CT brain wo con DATE OF EXAM: 12/03/2016 5:37 PM COMPARISON: 11/20/2016 HISTORY: Patient shows signs of altered mental status. CT DLP: 846.5 mGycm Automated exposure control for dose reduction was used. FINDINGS: There is some cerebral cortical atrophy. There is prominence of the ventricles. There is no mass effe ct nor midline shift. There is no sign of intracranial hemorrhage. The calvarium is intact. IMPRESSION: Cerebral atrophy and normal pressure type hydrocephalus. No acute abnormality. No change.
--- NOTE | 2016-12-03 17:44 | XR ---
EXAMINATION TYPE: XR chest 2V DATE OF EXAM: 12/03/2016 5:34 PM COMPARISON: 10/02/2014 HISTORY: Altered mental status. Chest pain. TECHNIQUE: Frontal and lateral views of the chest are obtained. FINDINGS: Heart and mediastinum are normal. Lungs are clear. Costophrenic angles are clear. There ar e no hilar masses. Bony thorax is intact. IMPRESSION: Normal chest. No change.
[2016-12-03 18:49] VITALS: BP 150/95; PULSE 73; RESP 18; TEMP 97.7
== END 2016-12-03 19:17 | disposition short-term general hospital (02) ==
LOC: EC 16:25
DX: R26.9 Unspecified abnormalities of gait and mobility (principal); R53.1 Weakness; R41.0 Disorientation, unspecified; G91.2 (Idiopathic) normal pressure hydrocephalus; G40.909 Epilepsy, unspecified, not intractable, without status epilepticus; K21.9 Gastro-esophageal reflux disease without esophagitis; E78.5 Hyperlipidemia, unspecified; I10 Essential (primary) hypertension; F17.200 Nicotine dependence, unspecified, uncomplicated; Z88.0 Allergy status to penicillin; Z79.899 Other long term (current) drug therapy
CPT/HCPCS: 36415; 70450; 71020; 80053; 80306; 81003; 83690; 83735; 84484; 85025; 85610; 85730; 93005; 99285

== ENCOUNTER 2016-12-16 15:36 | Emergency (ER) | payer MEDICARE, OTHER ==
--- NOTE | 2016-12-16 16:05 | ED ---
General Adult HPI - General Chief complaint: Psychiatric Symptoms Stated complaint: suicidal, combative Time Seen by Provider: 12/16/16 15:45 Source: patient, EMS Mode of arrival: EMS Limitations: altered mental status - History of Present Illness Initial comments: This 61-year-old white male presents for psychiatric evaluation. There is some question as to him hitting the wall at home and therefore being combative. He denies any depression or suicidal ideations. He apparently does have a degree of mental retardation and lives in some type of fci or other type of similar supervised living residence. He denies any medical complaints currently. He denies any known psychiatric history although records indicate that he does of bipolar disorder. He was diagnosed with normal pressure hydrocephalus approximately 2 weeks ago and apparently also does have a history of seizures. He was sent to [facility] for further evaluation. History is somewhat limited. No other complaints or modifying factors. He did have a spell directly after coming to the ER where he became very combative and needed to be restrained. - Related Data Home Medications Medication Instructions Recorded Confirmed Docusate [Colace] 100 mg PO HS 08/25/14 12/16/16 hydrOXYzine HCL [Atarax] 25 mg PO HS 05/28/16 12/16/16 Atorvastatin Calcium [Lipitor] 10 mg PO HS 11/20/16 12/16/16 Citalopram Hydrobromide [CeleXA] 20 mg PO DAILY 11/20/16 12/16/16 QUEtiapine [SEROquel] 200 mg PO HS 11/20/16 12/16/16 levETIRAcetam 1,500 mg PO Q12HR 11/20/16 12/16/16 busPIRone HCL [Buspar] 30 mg PO BID 12/03/16 12/16/16 Acetaminophen Tab [Tylenol Tab] 650 mg PO Q6H PRN 12/16/16 12/16/16 Divalproex [Depakote] 250 mg PO BID 12/16/16 12/16/16 Lactulose 20 gm PO BID 12/16/16 12/16/16 Omeprazole 20 mg PO DAILY 12/16/16 12/16/16 metroNIDAZOLE 1% GEL [Metrogel 1%] 1 applic TOPICAL BID 12/16/16 12/16/16 Previous Rx's Medication Instructions Recorded Levothyroxine Sodium [Synthroid] 25 mcg PO DAILY #30 tab 04/11/14 Allergies Allergy/AdvReac Type Severity Reaction Status Date / Time Penicillins Allergy Unknown Verified 12/16/16 15:42 Review of Systems ROS Statement: Those systems with pertinent positive or pertinent negative responses have been documented in the HPI. ROS Other: All systems not noted in ROS Statement are negative. 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 History of Any Multi-Drug Resistant Organisms: None Reported Past Surgical History: Prostate Surgery Additional Past Surgical History / Comment(s): Cystoscopy/TURP, EGD/colonoscopy with benign polypectomy, hemorrhoidectomy, L toes repaired-partial amp, Past Anesthesia/Blood Transfusion Reactions: No Reported Reaction Past Psychological History: Bipolar, Depression, Schizoaffective Disorder Additional Psychological History / Comment(s): Pt now resides with his fishing rod marker. He has been told by his physician that he needs to start using a walker. He uses the bus to get places. He has a legal guardian, Isablela Ingram. He has had falls. Smoking Status: Current every day smoker Past Alcohol Use History: None Reported Additional Past Alcohol Use History / Comment(s): <ppd-caregiver not sure how long he's smoked Past Drug Use History: None Reported - Past Family History Mother Family Medical History: Cancer Additional Family Medical History / Comment(s): Mother had colon cancer. Father History Unknown: Yes General Exam - General Exam Comments Initial Comments: GENERAL: The patient is well nourished and well hydrated. VITAL SIGNS: Heart rate, blood pressure, respiratory rate reviewed as recorded in nurse's notes. EYES: Pupils are round and reactive. Extraocular movements are intact. No conjunctival / lid redness or swelling. ENT: No external evidence of injury, swelling, or ecchymosis. Airway is patent. Throat is clear. NECK: Nontender. No swelling or evidence of injury. No subcutaneous emphysema. Trachea is midline. No thyroid mass. HEART: Regular rate and rhythm. Good peripheral pulses. LUNGS/CHEST: Breath sounds clear and equal bilaterally. No rales, rhonchi, or wheezes. No ecchymosis, subcutaneous emphysema, or tenderness. ABDOMEN: Abdomen soft without tenderness. No palpable masses or organomegaly. No peritoneal signs. No abdominal wall swelling or ecchymosis. EXTREMITIES: No extremity tenderness. Normal muscle tone and function. No thoracolumbar tenderness. NEUROLOGIC: Sensation is grossly intact. Cranial nerve exam reveals face is symmetrical, tongue is midline, speech is clear. SKIN: No abrasions or ecchymosis is noted. No induration or masses noted. PSYCHIATRIC: Alert and in no distress. Appropriate behavior and judgment upon my evaluation but was quite combative earlier. Limitations: altered mental status Course Vital Signs 12/16/16 15:48 Temperature 97.2 F L Pulse Rate 94 Respiratory 16 Rate Blood Pressure 155/71 O2 Sat by Pulse 95 Oximetry Medical Decision Making - Medical Decision Making Patient was seen and examined. All diagnostics were reviewed. Patient was placed in restraints as he tried to leave the hospital and became quite combative. He states that he just wanted to have a smoke. He furthermore has been quite cooperative and appropriate. His laboratory is reviewed and is quite unremarkable. Old records are reviewed as well. It is felt as though the patient is stable for further psychiatric consultation and is medically cleared. The case is discussed with the psychiatric nurse and they consult with the psychiatrist. They feel as though he is stable for discharge as well. He's been watched in the emergency department for many hours. He is acting quite appropriate. He initially was somewhat mad because he wanted to smoke but he has been quite well since. They do not find any significant psychiatric diagnosis and is felt as though he is stable to be transferred [facility]. - Lab Data Result diagrams: 12/16/16 14:16 12/16/16 14:16 Lab Results 12/16/16 12/16/16 12/16/16 Range/Units 14:16 14:16 14:16 WBC 8.1 (3.8-10.6) k/uL RBC 3.76 L (4.30-5.90) m/uL Hgb 12.5 L (13.0-17.5) gm/dL Hct 38.7 L (39.0-53.0) % MCV 102.7 H (80.0-100.0) fL MCH 33.2 (25.0-35.0) pg MCHC 32.3 (31.0-37.0) g/dL RDW 14.7 (11.5-15.5) % Plt Count 219 (150-450) k/uL Neutrophils % 66 % Lymphocytes % 21 % Monocytes % 8 % Eosinophils % 1 % Basophils % 1 % Neutrophils # 5.3 (1.3-7.7) k/uL Lymphocytes # 1.7 (1.0-4.8) k/uL Monocytes # 0.6 (0-1.0) k/uL Eosinophils # 0.1 (0-0.7) k/uL Basophils # 0.1 (0-0.2) k/uL Macrocytosis Slight Sodium 146 H (137-145) mmol/L Potassium 4.5 (3.5-5.1) mmol/L Chloride 106 (98-107) mmol/L Carbon Dioxide 29 (22-30) mmol/L Anion Gap 11 mmol/L BUN 22 H (9-20) mg/dL Creatinine 0.90 (0.66-1.25) mg/dL Est GFR (MDRD) Af Amer >60 (>60 ml/min/1.73 sqM) Est GFR (MDRD) Non-Af >60 (>60 ml/min/1.73 sqM) Glucose 123 H (74-99) mg/dL Calcium 9.2 (8.4-10.2) mg/dL Salicylates <1.0 mg/dL Urine Opiates Screen Not Detected (NotDetected) Ur Oxycodone Screen Not Detected (NotDetected) Urine Methadone Screen Not Detected (NotDetected) Ur Propoxyphene Screen Not Detected (NotDetected) Acetaminophen <10.0 ug/mL Ur Barbiturates Screen Not Detected (NotDetected) Valproic Acid 30.7 ug/mL U Tricyclic Antidepress Detected H (NotDetected) Ur Phencyclidine Scrn Not Detected (NotDetected) Ur Amphetamines Screen Not Detected (NotDetected) U Methamphetamines Scrn Not Detected (NotDetected) U Benzodiazepines Scrn Not Detected (NotDetected) Urine Cocaine Screen Not Detected (NotDetected) U Marijuana (THC) Screen Not Detected (NotDetected) Serum Alcohol <10 mg/dL Disposition Clinical Impression: Adjustment reaction Disposition: HOME SELF-CARE Condition: Good Instructions: Conduct Disorder (ED) Referrals: Brad Diane MD [Primary Care Provider] - 1-2 days Time of Disposition: 19:50
[2016-12-16] MEDS: NICOTINE 21MG/24HR PATCH TRANSDERM STA ×2 (16:26)
[2016-12-16 16:43] LABS: Basophils # (A) 0.1 k/uL (0-0.2); Basophils % (A) 1 %; CHCM 32.3; Eosinophils # (A) 0.1 k/uL (0-0.7); Eosinophils % (A) 1 %; HCT 38.7 % (39.0-53.0); HDW 2.65; HGB 12.5 gm/dL (13.0-17.5); Luc # (Auto) 0.24; Luc % (Auto) 3; Lymphocytes # (A) 1.7 k/uL (1.0-4.8); Lymphocytes % (A) 21 %; MCH 33.2 pg (25.0-35.0); MCHC 32.3 g/dL (31.0-37.0); MCV 102.7 fL (80.0-100.0); Macrocytosis Slight; Mean Platelet Volume 8.1; Monocytes # (A) 0.6 k/uL (0-1.0); Monocytes % (A) 8 %; Neutrophils # (A) 5.3 k/uL (1.3-7.7); Neutrophils % (A) 66 %; RBC 3.76 m/uL (4.30-5.90); RDW 14.7 % (11.5-15.5); WBC 8.1 k/uL (3.8-10.6); WBC (Perox) 8.35
[2016-12-16 16:49] LABS: Acetaminophen <10.0 ug/mL; Alcohol <10 mg/dL; Anion Gap 11 mmol/L; Blood Urea Nitrogen 22 mg/dL (9-20); Calcium 9.2 mg/dL (8.4-10.2); Carbon Dioxide 29 mmol/L (22-30); Chloride 106 mmol/L (98-107); Glucose 123 mg/dL (74-99); Non-African American GFR(MDRD) >60 (>60 ml/min/1.73 sqM); Potassium 4.5 mmol/L (3.5-5.1); Salicylate <1.0 mg/dL; Sodium 146 mmol/L (137-145)
[2016-12-16 20:25] VITALS: BP 139/74; PULSE 87; RESP 18; TEMP 98
--- NOTE | 2016-12-25 00:54 | ED ---
Medical Decision Making - Medical Decision Making The patient initially was seen and it is felt as though he would require the restraints. He later was reevaluated by myself and is felt as though he is calm down and we were able to remove the restraints. - Lab Data Result diagrams: 12/16/16 14:16 12/16/16 14:16 Lab Results 12/16/16 12/16/16 12/16/16 Range/Units 14:16 14:16 14:16 WBC 8.1 (3.8-10.6) k/uL RBC 3.76 L (4.30-5.90) m/uL Hgb 12.5 L (13.0-17.5) gm/dL Hct 38.7 L (39.0-53.0) % MCV 102.7 H (80.0-100.0) fL MCH 33.2 (25.0-35.0) pg MCHC 32.3 (31.0-37.0) g/dL RDW 14.7 (11.5-15.5) % Plt Count 219 (150-450) k/uL Neutrophils % 66 % Lymphocytes % 21 % Monocytes % 8 % Eosinophils % 1 % Basophils % 1 % Neutrophils # 5.3 (1.3-7.7) k/uL Lymphocytes # 1.7 (1.0-4.8) k/uL Monocytes # 0.6 (0-1.0) k/uL Eosinophils # 0.1 (0-0.7) k/uL Basophils # 0.1 (0-0.2) k/uL Macrocytosis Slight Sodium 146 H (137-145) mmol/L Potassium 4.5 (3.5-5.1) mmol/L Chloride 106 (98-107) mmol/L Carbon Dioxide 29 (22-30) mmol/L Anion Gap 11 mmol/L BUN 22 H (9-20) mg/dL Creatinine 0.90 (0.66-1.25) mg/dL Est GFR (MDRD) Af Amer >60 (>60 ml/min/1.73 sqM) Est GFR (MDRD) Non-Af >60 (>60 ml/min/1.73 sqM) Glucose 123 H (74-99) mg/dL Calcium 9.2 (8.4-10.2) mg/dL Salicylates <1.0 mg/dL Urine Opiates Screen Not Detected (NotDetected) Ur Oxycodone Screen Not Detected (NotDetected) Urine Methadone Screen Not Detected (NotDetected) Ur Propoxyphene Screen Not Detected (NotDetected) Acetaminophen <10.0 ug/mL Ur Barbiturates Screen Not Detected (NotDetected) Valproic Acid 30.7 ug/mL U Tricyclic Antidepress Detected H (NotDetected) Ur Phencyclidine Scrn Not Detected (NotDetected) Ur Amphetamines Screen Not Detected (NotDetected) U Methamphetamines Scrn Not Detected (NotDetected) U Benzodiazepines Scrn Not Detected (NotDetected) Urine Cocaine Screen Not Detected (NotDetected) U Marijuana (THC) Screen Not Detected (NotDetected) Serum Alcohol <10 mg/dL Disposition Clinical Impression: Adjustment reaction Disposition: HOME SELF-CARE Condition: Good Instructions: Conduct Disorder (ED) Referrals: Brad Diane MD [Primary Care Provider] - 1-2 days
== END 2016-12-16 20:35 | disposition home or self-care (01) ==
LOC: EC 15:36
DX: F43.20 Adjustment disorder, unspecified (principal); E78.5 Hyperlipidemia, unspecified; I10 Essential (primary) hypertension; K21.9 Gastro-esophageal reflux disease without esophagitis; F31.9 Bipolar disorder, unspecified; G40.909 Epilepsy, unspecified, not intractable, without status epilepticus; Z88.0 Allergy status to penicillin; Z79.899 Other long term (current) drug therapy
CPT/HCPCS: 36415; 80048; 80164; 80306; 80320; 82075; 83520; 85025; 99285

== ENCOUNTER → 2019-08-20 | Outpatient (CLI) | payer MEDICARE, OTHER ==
--- NOTE | 2019-08-20 15:37 | XR ---
EXAMINATION TYPE: XR abdomen 1V DATE OF EXAM: 08/20/2019 COMPARISON: 08/25/2014 INDICATION: Abdomen pain TECHNIQUE: Single view abdomen supine view FINDINGS: There is normal bowel gas through the colon. Mild fecal debris is throughout the colon. No mass effec t is evident. Psoas margins are normal. No organomegaly is present. There is chronic elevation of the right diaphragm. IMPRESSION: 1. Unremarkable Abdomen
== END | disposition home or self-care (01) ==
LOC: RADXRMAIN 12:33
PROVIDERS: ATTEND Internal Medicine
DX: R10.9 Unspecified abdominal pain (principal)
CPT/HCPCS: 74018

== ENCOUNTER → 2021-03-19 | Outpatient (CLI) | payer MEDICARE, OTHER | END | disposition home or self-care (01) | LOC: LABWHC1 09:48 | PROVIDERS: ATTEND Psychiatry & Neurology Psychiatry | DX: Z79.899 Other long term (current) drug therapy (principal) | CPT/HCPCS: 36415; 80164 ==

== ENCOUNTER 2022-04-27 15:12 | Emergency (ER) | payer MEDICARE, OTHER ==
[2022-04-27 15:22] VITALS: TEMP 97.6
--- NOTE | 2022-04-27 17:00 | ED ---
General Adult HPI - General Chief complaint: Recheck/Abnormal Lab/Rx Stated complaint: rectal bleeding Time Seen by Provider: 04/27/22 16:41 Source: patient Mode of arrival: EMS Limitations: no limitations - History of Present Illness Initial comments: Patient presents to the ED by ambulance for evaluation. Patient states that he has a bleeding hemorrhoid. Patient states that he has had hemorrhoidal bleeding intermittently over the past year or so. Patient states that he was seen in the [facility] emergency room yesterday for his bleeding hemorrhoid, and he states he was discharged home. Patient was discharged home with prescriptions f or docusate, as well as hydrocortisone cream, both of which he states he has not yet filled. Patient states that he noticed more rectal bleeding today, so he called for an ambulance. Patient denies anticoagulant medication use. Patient denies trauma or injury, any pain, fever or chills, headache, focal neuro deficit, chest pain or pressure, dyspnea, palpitations, dizziness/lightheadedness, abdominal pain, rectal pain, nausea/vomiting/diarrhea, constipation, melena, dysuria/hematuria/urinary f requency/urinary symptoms, bruising, or any other symptoms or complaints. - Related Data Home Medications Medication Instructions Recorded Confirmed Docusate [Colace] 100 mg PO HS 08/25/14 12/16/16 hydrOXYzine HCL [Atarax] 25 mg PO HS 05/28/16 12/16/16 Atorvastatin Calcium [Lipitor] 10 mg PO HS 11/20/16 12/16/16 Citalopram Hydrobromide [CeleXA] 20 mg PO DAILY 11/20/16 12/16/16 QUEtiapine [SEROquel] 200 mg PO HS 11/20/16 12/16/16 levETIRAcetam 1,500 mg PO Q12HR 11/20/16 12/16/16 busPIRone HCL [Buspar] 30 mg PO BID 12/03/16 12/16/16 Acetaminophen Tab [Tylenol Tab] 650 mg PO Q6H PRN 12/16/16 12/16/16 Divalproex [Depakote] 250 mg PO BID 12/16/16 12/16/16 Lactulose 20 gm PO BID 12/16/16 12/16/16 Omeprazole 20 mg PO DAILY 12/16/16 12/16/16 metroNIDAZOLE 1% GEL [Metrogel 1%] 1 applic TOPICAL BID 12/16/16 12/16/16 Previous Rx's Medication Instructions Recorded Levothyroxine Sodium [Synthroid] 25 mcg PO DAILY #30 tab 04/11/14 Allergies Allergy/AdvReac Type Severity Reaction Status Date / Time Penicillins Allergy Unknown Verified 04/27/22 15:18 Review of Systems ROS Statement: Those systems with pertinent positive or pertinent negative responses have been documented in the HPI. ROS Other: All systems not noted in ROS Statement are negative. 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 History of Any Multi-Drug Resistant Organisms: None Reported Past Surgical History: Prostate Surgery Additional Past Surgical History / Comment(s): Cystoscopy/TURP, EGD/colonoscopy with benign polypectomy, hemorrhoidectomy, L toes repaired-partial amp, Past Anesthesia/Blood Transfusion Reactions: No Reported Reaction Past Psychological History: Bipolar, Depression, Schizoaffective Disorder Smoking Status: Current every day smoker Past Alcohol Use History: None Reported Past Drug Use History: None Reported - Past Family History Mother Family Medical History: Cancer Additional Family Medical History / Comment(s): Mother had colon cancer. Father History Unknown: Yes General Exam Limitations: no limitations General appearance: alert, in no apparent distress Head exam: Present: atraumatic, normocephalic Eye exam: Present: normal appearance, EOMI ENT exam: Present: mucous membranes moist Neck exam: Present: other (Trachea is in midline) Respiratory exam: Present: normal lung sounds bilaterally. Absent: respiratory distress, wheezes, rales, rhonchi, stridor Cardiovascular Exam: Present: regular rate, normal rhythm, normal heart sounds, other (Normal radial pulses bilaterally) GI/Abdominal exam: Present: soft. Absent: distended, tenderness, guarding Rectal exam: Present: normal rectal tone, other (A small bleeding hemorrhoid is noted on exam; hemorrhoid does not appear to be thrombosed). Absent: tenderness Extremities exam: Absent: pedal edema Neurological exam: Present: alert, oriented X3. Absent: motor sensory deficit Psychiatric exam: Present: normal affect, normal mood Skin exam: Present: warm, dry, intact, normal color Course Vital Signs 04/27/22 15:15 Temperature 97.6 F Pulse Rate 71 Respiratory 20 Rate Blood Pressure 126/74 O2 Sat by Pulse 99 Oximetry - Reevaluation(s) Reevaluation #1: 04/27/22 19:45 Patient denies development of any new symptoms while in the ED. Patient is awar e of his test results, any feels comfortable being discharged home at this time. Patient was counseled about bleeding hemorrhoids, and he was clearly explained return and follow-up instructions. Patient was instructed to fill the prescriptions for docusate and hydrocortisone cream that he was provided at the [facility] ER. Patient was instructed to follow up closely with his primary care provider. Patient feels comfortable with this plan. Medical Decision Making - Medical Decision Making Patient reports having intermittent hemorrhoidal bleeding for the past year or so. Patient is noted to have a bleeding hemorrhoid on rectal examination in the ED. Patient's hemoglobin is normal/stable at 13.4. Patient is hemodynamically stable. Patient denies feeling lightheaded dizzy or dyspneic. Patient is not on any anticoagulant medications at this time. I do not suspect an emergent medical condition at this time. Will discharge patient home at this time. Patient feels comfortable this plan. - Lab Data Result diagrams: 04/27/22 17:27 04/27/22 17:27 Lab Results 04/27/22 04/27/22 04/27/22 Range/Units 17:26 17:27 17:27 WBC 6.2 (3.8-10.6) k/uL RBC 4.08 L (4.30-5.90) m/uL Hgb 13.4 (13.0-17.5) gm/dL Hct 41.0 (39.0-53.0) % MCV 100.5 H (80.0-100.0) fL MCH 32.8 (25.0-35.0) pg MCHC 32.6 (31.0-37.0) g/dL RDW 16.2 H (11.5-15.5) % Plt Count 178 (150-450) k/uL MPV 9.8 Neutrophils % 54 % Lymphocytes % 31 % Monocytes % 9 % Eosinophils % 3 % Basophils % 1 % Neutrophils # 3.4 (1.3-7.7) k/uL Lymphocytes # 1.9 (1.0-4.8) k/uL Monocytes # 0.6 (0-1.0) k/uL Eosinophils # 0.2 (0-0.7) k/uL Basophils # 0.0 (0-0.2) k/uL Hypochromasia Slight Anisocytosis Slight Macrocytosis Slight PT 12.1 H (9.0-12.0) sec INR 1.1 (<1.2) APTT 24.1 (22.0-30.0) sec Sodium (137-145) mmol/L Potassium (3.5-5.1) mmol/L Chloride (98-107) mmol/L Carbon Dioxide (22-30) mmol/L Anion Gap mmol/L BUN (9-20) mg/dL Creatinine (0.66-1.25) mg/dL Est GFR (CKD-EPI)AfAm (>60 ml/min/1.73 sqM) Est GFR (CKD-EPI)NonAf (>60 ml/min/1.73 sqM) Glucose (74-99) mg/dL Calcium (8.4-10.2) mg/dL Total Bilirubin (0.2-1.3) mg/dL AST (17-59) U/L ALT (4-49) U/L Alkaline Phosphatase (38-126) U/L Total Protein (6.3-8.2) g/dL Albumin (3.5-5.0) g/dL Stool Occult Blood (Negative) Blood Type AB Positive Blood Type Recheck AB Pos Bld Type Recheck Status No Antibody Screen NEGATIVE Spec Expiration Date 04/30/2022232604/27/22 04/27/22 Range/Units 17:27 18:13 WBC (3.8-10.6) k/uL RBC (4.30-5.90) m/uL Hgb (13.0-17.5) gm/dL Hct (39.0-53.0) % MCV (80.0-100.0) fL MCH (25.0-35.0) pg MCHC (31.0-37.0) g/dL RDW (11.5-15.5) % Plt Count (150-450) k/uL MPV Neutrophils % % Lymphocytes % % Monocytes % % Eosinophils % % Basophils % % Neutrophils # (1.3-7.7) k/uL Lymphocytes # (1.0-4.8) k/uL Monocytes # (0-1.0) k/uL Eosinophils # (0-0.7) k/uL Basophils # (0-0.2) k/uL Hypochromasia Anisocytosis Macrocytosis PT (9.0-12.0) sec INR (<1.2) APTT (22.0-30.0) sec Sodium 143 (137-145) mmol/L Potassium 4.4 (3.5-5.1) mmol/L Chloride 103 (98-107) mmol/L Carbon Dioxide 32 H (22-30) mmol/L Anion Gap 8 mmol/L BUN 21 H (9-20) mg/dL Creatinine 0.88 (0.66-1.25) mg/dL Est GFR (CKD-EPI)AfAm >90 (>60 ml/min/1.73 sqM) Est GFR (CKD-EPI)NonAf 89 (>60 ml/min/1.73 sqM) Glucose 79 (74-99) mg/dL Calcium 9.4 (8.4-10.2) mg/dL Total Bilirubin 0.9 (0.2-1.3) mg/dL AST 43 (17-59) U/L ALT 29 (4-49) U/L Alkaline Phosphatase 57 (38-126) U/L Total Protein 6.7 (6.3-8.2) g/dL Albumin 4.3 (3.5-5.0) g/dL Stool Occult Blood Positive (Negative) Blood Type Blood Type Recheck Bld Type Recheck Status Antibody Screen Spec Expiration Date Disposition Clinical Impression: Bleeding hemorrhoid Disposition: HOME SELF-CARE Condition: Stable Instructions (If sedation given, give patient instructions): Hemorrhoids (DC), Rectal Bleeding (ED) Additional Instructions: Return to the ER immediately should you develop increased bleeding, any significant pain, feeling dizzy or faint, shortness of breath, vomiting, or new or worsening symptoms. Follow up closely with your primary care provider. Is patient prescribed a controlled substance at d/c from ED?: No Referrals: None,Stated [REFERRING] - 1-2 days Zeus Baca DO [STAFF PHYSICIAN] - 1-2 days Time of Disposition: 19:48
[2022-04-27 17:38] LABS: Anisocytosis Slight; Basophils % (A) 1 %; Eosinophils # (A) 0.2 k/uL (0-0.7); Eosinophils % (A) 3 %; HGB 13.4 gm/dL (13.0-17.5); Hypochromasia Slight; Lymphocytes # (A) 1.9 k/uL (1.0-4.8); Lymphocytes % (A) 31 %; MCH 32.8 pg (25.0-35.0); MCHC 32.6 g/dL (31.0-37.0); MCV 100.5 fL (80.0-100.0); Macrocytosis Slight; Mean Platelet Volume 9.8; Monocytes # (A) 0.6 k/uL (0-1.0); Monocytes % (A) 9 %; Neutrophils # (A) 3.4 k/uL (1.3-7.7); Neutrophils % (A) 54 %; Platelet Count 178 k/uL (150-450); RBC 4.08 m/uL (4.30-5.90); RDW 16.2 % (11.5-15.5); WBC 6.2 k/uL (3.8-10.6)
[2022-04-27 17:46] LABS: INR 1.1 (<1.2); Partial Thromboplastin Time 24.1 sec (22.0-30.0); Prothrombin Time 12.1 sec (9.0-12.0)
[2022-04-27 17:48] LABS: ALT 29 U/L (4-49); AST 43 U/L (17-59); African American GFR (CKD) >90 (>60 ml/min/1.73 sqM); Albumin 4.3 g/dL (3.5-5.0); Alkaline Phosphatase 57 U/L (38-126); Anion Gap 8 mmol/L; Blood Urea Nitrogen 21 mg/dL (9-20); Calcium 9.4 mg/dL (8.4-10.2); Carbon Dioxide 32 mmol/L (22-30); Chloride 103 mmol/L (98-107); Glucose 79 mg/dL (74-99); Non-African American GFR(CKD) 89 (>60 ml/min/1.73 sqM); Potassium 4.4 mmol/L (3.5-5.1); Sodium 143 mmol/L (137-145); Total Bilirubin 0.9 mg/dL (0.2-1.3); Total Protein 6.7 g/dL (6.3-8.2)
[2022-04-27 20:19] VITALS: BP 165/75; PULSE 77; RESP 18
== END 2022-04-27 20:19 | disposition home or self-care (01) ==
LOC: EC 15:12 → EEVIPCON 15:12 → EC 20:19
DX: K64.9 Unspecified hemorrhoids (principal); J44.9 Chronic obstructive pulmonary disease, unspecified; K21.9 Gastro-esophageal reflux disease without esophagitis; E78.5 Hyperlipidemia, unspecified; I10 Essential (primary) hypertension; M19.90 Unspecified osteoarthritis, unspecified site; E03.9 Hypothyroidism, unspecified; Z86.69 Personal history of other diseases of the nervous system and sense organs; F17.200 Nicotine dependence, unspecified, uncomplicated; Z79.899 Other long term (current) drug therapy; Z88.0 Allergy status to penicillin
CPT/HCPCS: 36415; 80053; 82272; 85025; 85610; 85730; 86850; 86900; 86901; 99283

== ENCOUNTER 2022-05-18 15:47 | Emergency (ER) | payer MEDICARE, OTHER ==
[2022-05-18 15:58] VITALS: PULSE 69; RESP 18; TEMP 96.9
[2022-05-18] MEDS ORDERED: FLUORESCEIN STRIPS 1 MG STRIP BOTH EYES ONE (16:44)
[2022-05-18] MEDS ORDERED: PROPARACAINE 0.5% OPHTH DROPS 15 ML BTL BOTH EYES STA (16:44)
--- NOTE | 2022-05-18 16:50 | ED ---
General Adult HPI - General Chief complaint: Eye Problems Stated complaint: Increased blindness in R eye Time Seen by Provider: 05/18/22 16:37 Source: patient, EMS Mode of arrival: EMS Limitations: no limitations - History of Present Illness Initial comments: Dictation was produced using [employer] dictation software. please excuse any grammatical, word or spelling errors. Chief Complaint: 66-year-old male presents emergency department for worsening vision in the right eye History of Present Illness: 58-year-old male he has complained of worsening vision in the right eye. Patient is a poor historian. He has history of mental delay. Allegedly he had a CVA 2001. Patient lives at a retirement. He has multiple comorbidities. Patient states that he is here today for 48 hours of vision changes to the right eye. States that he also has intermittent drainage of fluid. States that his eyes crusty in the morning. Patient states he can't see how or when I hold a light and my gloved hand in front of him he accurately identifies what is shown to him. 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 Denies any eye pain. The ROS documented in this emergency department record has been reviewed and confirmed by me. Those systems with pertinent positive or negative responses have been documented in the HPI. All other systems are other negative and/or noncontributory. PHYSICAL EXAM: General Impression: Alert and oriented x3, not in acute distress HEENT: Normocephalic atraumatic, extra-ocular movements intact, pupils equal and reactive to light bilaterally, mucous membranes moist. Cardiovascular: Heart regular rate and rhythm Chest: Able to complete full sentences, no retractions, no tachypnea Abdomen: abdomen soft, non-tender, non-distended, no organomegaly Musculoskeletal: Pulses present and equal in all extremities, no peripheral edema Motor: no focal deficits noted Neurological: CN II-XII grossly intact, no focal motor or sensory deficits noted Skin: Intact with no visualized rashes Psych: Normal affect and mood Ocular: Mild nonindurated erythema to the medial and lateral canthus. There is mild purulent drainage, conjunctiva was injected on the lens appears clear on the right and cloudy of the left. Patient able to see light, and notify colors and see fingers held 3-4 feet in front of his right visual field ED course: 66-year-old male presents with chief complaint of right eye vision changes. Vital signs upon arrival are within acceptable limits. Patient is a very poor historian however his history and physical suggest an infected conjunctivitis. Likely viral however he does have some features to suggest that he has bacterial conjunctivitis. IOP was measured found be normal at approximately 10 mmHg. Floor seen staining with was not does not show any corneal abrasions or corneal abnormalities. Given antibiotic eyedrops. Case is discussed with Dr. Leong monument setter for ophthalmology who is agreeable with plan of care and follow-up with ophthalmology on Friday - Related Data Home Medications Medication Instructions Recorded Confirmed Docusate [Colace] 100 mg PO HS 08/25/14 12/16/16 hydrOXYzine HCL [Atarax] 25 mg PO HS 05/28/16 12/16/16 Atorvastatin Calcium [Lipitor] 10 mg PO HS 11/20/16 12/16/16 Citalopram Hydrobromide [CeleXA] 20 mg PO DAILY 11/20/16 12/16/16 QUEtiapine [SEROquel] 200 mg PO HS 11/20/16 12/16/16 levETIRAcetam 1,500 mg PO Q12HR 11/20/16 12/16/16 busPIRone HCL [Buspar] 30 mg PO BID 12/03/16 12/16/16 Acetaminophen Tab [Tylenol Tab] 650 mg PO Q6H PRN 12/16/16 12/16/16 Divalproex [Depakote] 250 mg PO BID 12/16/16 12/16/16 Lactulose 20 gm PO BID 12/16/16 12/16/16 Omeprazole 20 mg PO DAILY 12/16/16 12/16/16 metroNIDAZOLE 1% GEL [Metrogel 1%] 1 applic TOPICAL BID 12/16/16 12/16/16 Previous Rx's Medication Instructions Recorded Levothyroxine Sodium [Synthroid] 25 mcg PO DAILY #30 tab 04/11/14 Polymyxin B-Trimeth Sulf Ophth 1 drops RIGHT EYE Q4H 7 Days #10 ml 05/18/22 [Polytrim Opthalmic] Allergies Allergy/AdvReac Type Severity Reaction Status Date / Time Penicillins Allergy Unknown Verified 04/27/22 15:18 Review of Systems ROS Statement: Those systems with pertinent positive or pertinent negative responses have been documented in the HPI. ROS Other: All systems not noted in ROS Statement are negative. 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 History of Any Multi-Drug Resistant Organisms: None Reported Past Surgical History: Prostate Surgery Additional Past Surgical History / Comment(s): Cystoscopy/TURP, EGD/colonoscopy with benign polypectomy, hemorrhoidectomy, L toes repaired-partial amp, Past Anesthesia/Blood Transfusion Reactions: No Reported Reaction Past Psychological History: Bipolar, Depression, Schizoaffective Disorder Smoking Status: Current every day smoker Past Alcohol Use History: None Reported Past Drug Use History: None Reported - Past Family History Mother Family Medical History: Cancer Additional Family Medical History / Comment(s): Mother had colon cancer. Father History Unknown: Yes General Exam Limitations: no limitations Course Vital Signs 05/18/22 15:53 Temperature 96.9 F L Pulse Rate 69 Respiratory 18 Rate Blood Pressure 135/79 O2 Sat by Pulse 94 L Oximetry Disposition Clinical Impression: Keratoconjunctivitis Disposition: HOME SELF-CARE Condition: Fair Instructions (If sedation given, give patient instructions): Conjunctivitis (ED) Prescriptions: Polymyxin B-Trimeth Sulf Ophth [Polytrim Opthalmic] 1 drops RIGHT EYE Q4H 7 Days #10 ml Is patient prescribed a controlled substance at d/c from ED?: No Referrals: Jeffery Leong MD [STAFF PHYSICIAN] - 05/20/22 Time of Disposition: 17:31
[2022-05-18] MEDS ORDERED: POLYMYXIN B-TRIMETHOPRIM SULF (10,000-1) OPHTH DROPS 10 ML BTL RIGHT EYE SCH (17:00)
[2022-05-18 18:29] VITALS: BP 137/83
== END 2022-05-18 18:29 | disposition home or self-care (01) ==
LOC: EC 15:47
DX: H16.203 Unspecified keratoconjunctivitis, bilateral (principal); J44.9 Chronic obstructive pulmonary disease, unspecified; E78.5 Hyperlipidemia, unspecified; K21.9 Gastro-esophageal reflux disease without esophagitis; I10 Essential (primary) hypertension; Z79.899 Other long term (current) drug therapy; Z79.84 Long term (current) use of oral hypoglycemic drugs; F17.200 Nicotine dependence, unspecified, uncomplicated; Z88.0 Allergy status to penicillin
CPT/HCPCS: 99283; 99284

== ENCOUNTER 2022-12-30 12:35 | Emergency (ER) | payer MEDICARE, OTHER ==
[2022-12-30 12:45] VITALS: RESP 18
--- NOTE | 2022-12-30 13:16 | ED ---
General Adult HPI - General Chief complaint: GI Bleed Stated complaint: hemmorhoids Time Seen by Provider: 12/30/22 12:56 Source: patient, EMS Mode of arrival: EMS Limitations: no limitations - History of Present Illness Initial comments: Dictation was produced using [employer] dictation software. please excuse any grammatical, word or spelling errors. Chief Complaint: 67-year-old male presents to the emergency Department for GI bleed History of Present Illness: Is 67-year-old male presents emergency department for GI bleed. Patient has bright red blood per rectum for the last 48 hours. History of hemorrhoids. Denies any abdominal pain. Does complain of some mild rectal pain. Patient is not taking adequate hydration medications. Patient lives in a halfway. The ROS documented in this emergency department record has been reviewed and confirmed by me. Those systems with pertinent positive or negative responses have been documented in the HPI. All other systems are other negative and/or noncontributory. - Related Data Home Medications Medication Instructions Recorded Confirmed Docusate [Colace] 100 mg PO HS 08/25/14 12/16/16 hydrOXYzine HCL [Atarax] 25 mg PO HS 05/28/16 12/16/16 Atorvastatin Calcium [Lipitor] 10 mg PO HS 11/20/16 12/16/16 Citalopram Hydrobromide [CeleXA] 20 mg PO DAILY 11/20/16 12/16/16 QUEtiapine [SEROquel] 200 mg PO HS 11/20/16 12/16/16 levETIRAcetam 1,500 mg PO Q12HR 11/20/16 12/16/16 busPIRone HCL [Buspar] 30 mg PO BID 12/03/16 12/16/16 Acetaminophen Tab [Tylenol Tab] 650 mg PO Q6H PRN 12/16/16 12/16/16 Divalproex [Depakote] 250 mg PO BID 12/16/16 12/16/16 Lactulose 20 gm PO BID 12/16/16 12/16/16 Omeprazole 20 mg PO DAILY 12/16/16 12/16/16 metroNIDAZOLE 1% GEL [Metrogel 1%] 1 applic TOPICAL BID 12/16/16 12/16/16 Previous Rx's Medication Instructions Recorded Levothyroxine Sodium [Synthroid] 25 mcg PO DAILY #30 tab 04/11/14 Polymyxin B-Trimeth Sulf Ophth 1 drops RIGHT EYE Q4H 7 Days #10 ml 05/18/22 [Polytrim Opthalmic] Allergies Allergy/AdvReac Type Severity Reaction Status Date / Time Penicillins Allergy Unknown Verified 12/30/22 12:45 Review of Systems ROS Statement: Those systems with pertinent positive or pertinent negative responses have been documented in the HPI. ROS Other: All systems not noted in ROS Statement are negative. 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 History of Any Multi-Drug Resistant Organisms: None Reported Past Surgical History: Prostate Surgery Additional Past Surgical History / Comment(s): Cystoscopy/TURP, EGD/colonoscopy with benign polypectomy, hemorrhoidectomy, L toes repaired-partial amp, Past Anesthesia/Blood Transfusion Reactions: No Reported Reaction Past Psychological History: Bipolar, Depression, Schizoaffective Disorder Smoking Status: Current every day smoker Past Alcohol Use History: None Reported Past Drug Use History: None Reported - Past Family History Mother Family Medical History: Cancer Additional Family Medical History / Comment(s): Mother had colon cancer. Father History Unknown: Yes General Exam - General Exam Comments Initial Comments: PHYSICAL EXAM: General Impression: Alert and oriented x3, not in acute distress HEENT: Normocephalic atraumatic, extra-ocular movements intact, pupils equal and reactive to light bilaterally, mucous membranes moist. Cardiovascular: Heart regular rate and rhythm Chest: Able to complete full sentences, no retractions, no tachypnea Abdomen: abdomen soft, non-tender, non-distended, no organomegaly Musculoskeletal: Pulses present and equal in all extremities, no peripheral edema Motor: no focal deficits noted Neurological: CN II-XII grossly intact, no focal motor or sensory deficits noted Skin: Intact with no visualized rashes Psych: Normal affect and mood Rectal exam: Anal skin tag posteriorly. No gross blood. No active bleeding Limitations: no limitations Course Vital Signs 12/30/22 12:40 Pulse Rate 77 Respiratory 18 Rate Blood Pressure 131/67 O2 Sat by Pulse 98 Oximetry Medical Decision Making - Medical Decision Making Was pt. sent in by a medical professional or institution (, PA, UNIT CONTROL WORKER, urgent care, hospital, or detention...) When possible be specific @ -No Did you speak to anyone other than the patient for history (EMS, parent, family, police, friend...)? What history was obtained from this source @ -No Did you review nursing and triage notes (agree or disagree)? Why? @ -I reviewed and agree with nursing and triage notes Were old charts reviewed (outside hosp., previous admission, EMS record, old EKG, old radiological studies, urgent care reports/EKG's, detention records)? Report findings @ -No old charts were reviewed Differential Diagnosis (chest pain, altered mental status, abdominal pain women, abdominal pain men, vaginal bleeding, musculoskeletal, weakness, fever, dyspnea, syncope, headache, dizziness, GI bleed, back pain, seizure, CVA, palpatations, mental health)? @ -Differential GI Bleed: Esophageal varices, aortoenteric fistula, Ann-[place], gastritis, peptic ulcer disease, diverticulosis, inflammatory bowel disease, hemorrhoids, fissure, colitis, malignancy, Meckels diverticulum, this is not meant to be an all- inclusive list. EKG interpreted by me (3pts min.). @ -None done X-rays interpreted by me (1pt min.). @ -None done CT interpreted by me (1pt min.). @ -None done U/S interpreted by me (1pt. min.). @ -None done What testing was considered but not performed or refused? (CT, X-rays, U/S, labs)? Why? @ -None What meds were considered but not given or refused? Why? @ -None Did you discuss the management of the patient with other professionals (professionals i.e. , PA, UNIT CONTROL WORKER, lab, RT, psych nurse, social services coordinator, washing tub operator, teacher, custom protection officer, catalytic case operator)? Give summary @ -No Was smoking cessation discussed for >3mins.? @ -No Was critical care preformed (if so, how long)? @ -No Were there social determinants of health that impacted care today? How? (Homelessness, low income, unemployed, alcoholism, drug addiction, transportation, low edu. Level, literacy, decrease access to med. care, retirement, rehab)? @ -No Was there de-escalation of care discussed even if they declined (Discuss DNR or withdrawal of care, Hospice)? DNR status @ -No What co-morbidities impacted this encounter? (DM, HTN, Smoking, COPD, CAD, Cancer, CVA, ARF, Chemo, Hep., AIDS, mental health diagnosis, sleep apnea, morbid obesity)? @ -None Was patient admitted / discharged? Hospital course, mention meds given and route, prescriptions, significant lab abnormalities, going to OR and other pe rtinent info. @ -67-year-old male past medical history of hemorrhoids presents with bright blood per rectum. Patient in episode today. Patient has any abdominal pain. Vital signs are stable. Abdominal examination is benign. No active bleeding on rectal exam. Patient had positive stool occult blood. Hemoglobin stable at 12.8. Patient is not taking any coagulation medications. Disposition options were discussed. Agreeable discharged told to follow-up with his primary care doctor. Return precautions discussed. Patient agreeable plan. Patient given outpatient referral to GI. Undiagnosed new problem with uncertain prognosis? @ -No Drug Therapy requiring intensive monitoring for toxicity (Heparin, Nitro, Ins ulin, Cardizem)? @ -No Were any procedures done? @ -No Diagnosis/symptom? Acute, or Chronic, or Acute on Chronic? Uncomplicated (without systemic symptoms) or Complicated (systemic symptoms)? @ -1. Bleeding hemorrhoid Side effects of treatment? @ -No Exacerbation, Progression, or Severe Exacerbation? @ -No Poses a threat to life or bodily function? How? (Chest pain, [place], [place], pneumonia, PE, COPD, DKA, ARF, appy, cholecystitis, CVA, Diverticulitis, Homicidal, Suicidal, threat to staff... and all critical care pts) @ -yes - Lab Data Result diagrams: 12/30/22 13:25 12/30/22 13:25 Lab Results 12/30/22 12/30/22 12/30/22 Range/Units 13:25 13:25 13:25 WBC 12.3 H (3.8-10.6) k/uL RBC 4.13 L (4.30-5.90) m/uL Hgb 12.8 L (13.0-17.5) gm/dL Hct 40.8 (39.0-53.0) % MCV 98.8 (80.0-100.0) fL MCH 30.9 (25.0-35.0) pg MCHC 31.3 (31.0-37.0) g/dL RDW 19.2 H (11.5-15.5) % Plt Count 243 (150-450) k/uL MPV 9.7 Neutrophils % 83 % Lymphocytes % 11 % Monocytes % 5 % Eosinophils % 0 % Basophils % 0 % Neutrophils # 10.2 H (1.3-7.7) k/uL Lymphocytes # 1.3 (1.0-4.8) k/uL Monocytes # 0.6 (0-1.0) k/uL Eosinophils # 0.0 (0-0.7) k/uL Basophils # 0.0 (0-0.2) k/uL Hypochromasia Slight Anisocytosis Slight Macrocytosis Slight PT 13.1 H (9.0-12.0) sec INR 1.3 H (<1.2) APTT 24.2 (22.0-30.0) sec Sodium 141 (137-145) mmol/L Potassium 4.6 (3.5-5.1) mmol/L Chloride 102 (98-107) mmol/L Carbon Dioxide 35 H (22-30) mmol/L Anion Gap 4 mmol/L BUN 28 H (9-20) mg/dL Creatinine 0.91 (0.66-1.25) mg/dL Est GFR (CKD-EPI)AfAm >90 (>60 ml/min/1.73 sqM) Est GFR (CKD-EPI)NonAf 86 (>60 ml/min/1.73 sqM) Glucose 88 (74-99) mg/dL Calcium 9.2 (8.4-10.2) mg/dL Total Bilirubin 1.0 (0.2-1.3) mg/dL AST 30 (17-59) U/L ALT 16 (4-49) U/L Alkaline Phosphatase 70 (38-126) U/L Total Protein 6.5 (6.3-8.2) g/dL Albumin 3.8 (3.5-5.0) g/dL Stool Occult Blood (Negative) 12/30/22 Range/Units 13:25 WBC (3.8-10.6) k/uL RBC (4.30-5.90) m/uL Hgb (13.0-17.5) gm/dL Hct (39.0-53.0) % MCV (80.0-100.0) fL MCH (25.0-35.0) pg MCHC (31.0-37.0) g/dL RDW (11.5-15.5) % Plt Count (150-450) k/uL MPV Neutrophils % % Lymphocytes % % Monocytes % % Eosinophils % % Basophils % % Neutrophils # (1.3-7.7) k/uL Lymphocytes # (1.0-4.8) k/uL Monocytes # (0-1.0) k/uL Eosinophils # (0-0.7) k/uL Basophils # (0-0.2) k/uL Hypochromasia Anisocytosis Macrocytosis PT (9.0-12.0) sec INR (<1.2) APTT (22.0-30.0) sec Sodium (137-145) mmol/L Potassium (3.5-5.1) mmol/L Chloride (98-107) mmol/L Carbon Dioxide (22-30) mmol/L Anion Gap mmol/L BUN (9-20) mg/dL Creatinine (0.66-1.25) mg/dL Est GFR (CKD-EPI)AfAm (>60 ml/min/1.73 sqM) Est GFR (CKD-EPI)NonAf (>60 ml/min/1.73 sqM) Glucose (74-99) mg/dL Calcium (8.4-10.2) mg/dL Total Bilirubin (0.2-1.3) mg/dL AST (17-59) U/L ALT (4-49) U/L Alkaline Phosphatase (38-126) U/L Total Protein (6.3-8.2) g/dL Albumin (3.5-5.0) g/dL Stool Occult Blood Positive (Negative) Disposition Clinical Impression: GI bleed Disposition: HOME SELF-CARE Condition: Good Instructions (If sedation given, give patient instructions): Gastrointestinal Bleeding (ED) Is patient prescribed a controlled substance at d/c from ED?: No Referrals: Margarita Seth MD [STAFF PHYSICIAN] - 1-2 days Time of Disposition: 14:50
[2022-12-30 13:40] LABS: Anisocytosis Slight; Basophils % (A) 0 %; Eosinophils % (A) 0 %; HCT 40.8 % (39.0-53.0); HGB 12.8 gm/dL (13.0-17.5); Hypochromasia Slight; Lymphocytes # (A) 1.3 k/uL (1.0-4.8); Lymphocytes % (A) 11 %; MCH 30.9 pg (25.0-35.0); MCHC 31.3 g/dL (31.0-37.0); MCV 98.8 fL (80.0-100.0); Macrocytosis Slight; Mean Platelet Volume 9.7; Monocytes # (A) 0.6 k/uL (0-1.0); Monocytes % (A) 5 %; Neutrophils # (A) 10.2 k/uL (1.3-7.7); Neutrophils % (A) 83 %; Platelet Count 243 k/uL (150-450); RBC 4.13 m/uL (4.30-5.90); RDW 19.2 % (11.5-15.5); WBC 12.3 k/uL (3.8-10.6)
[2022-12-30 14:00] LABS: ALT 16 U/L (4-49); AST 30 U/L (17-59); African American GFR (CKD) >90 (>60 ml/min/1.73 sqM); Albumin 3.8 g/dL (3.5-5.0); Alkaline Phosphatase 70 U/L (38-126); Anion Gap 4 mmol/L; Blood Urea Nitrogen 28 mg/dL (9-20); Calcium 9.2 mg/dL (8.4-10.2); Carbon Dioxide 35 mmol/L (22-30); Chloride 102 mmol/L (98-107); Glucose 88 mg/dL (74-99); Non-African American GFR(CKD) 86 (>60 ml/min/1.73 sqM); Potassium 4.6 mmol/L (3.5-5.1); Sodium 141 mmol/L (137-145); Total Protein 6.5 g/dL (6.3-8.2)
[2022-12-30 14:03] LABS: INR 1.3 (<1.2); Partial Thromboplastin Time 24.2 sec (22.0-30.0); Prothrombin Time 13.1 sec (9.0-12.0)
[2022-12-30] MEDS ORDERED: PANTOPRAZOLE 40 MG/10 ML VIAL IVP STA (14:46)
[2022-12-30 15:56] VITALS: BP 154/66; PULSE 78
== END 2022-12-30 16:47 | disposition home or self-care (01) ==
LOC: EC 12:35
DX: K92.2 Gastrointestinal hemorrhage, unspecified (principal); E03.9 Hypothyroidism, unspecified; E78.5 Hyperlipidemia, unspecified; I10 Essential (primary) hypertension; J44.9 Chronic obstructive pulmonary disease, unspecified; K21.9 Gastro-esophageal reflux disease without esophagitis; M19.90 Unspecified osteoarthritis, unspecified site; F17.200 Nicotine dependence, unspecified, uncomplicated; Z79.899 Other long term (current) drug therapy; Z79.890 Hormone replacement therapy; Z88.0 Allergy status to penicillin
CPT/HCPCS: 36415; 86900; 86901; 80053; 85025; 85610; 85730; 86850; 82272; 99285; 96374; C9113

== ENCOUNTER 2024-02-22 13:46 | Emergency (ER) | payer MEDICARE, OTHER ==
[2024-02-22 14:54] LABS: Anisocytosis Slight; Basophils # (A) 0.1 k/uL (0-0.2); Basophils % (A) 1 %; Eosinophils # (A) 0.1 k/uL (0-0.7); Eosinophils % (A) 1 %; HCT 38.6 % (39.0-53.0); HGB 12.2 gm/dL (13.0-17.5); Hypochromasia Marked; Lymphocytes # (A) 1.9 k/uL (1.0-4.8); Lymphocytes % (A) 21 %; MCH 30.5 pg (25.0-35.0); MCHC 31.5 g/dL (31.0-37.0); MCV 96.8 fL (80.0-100.0); Macrocytosis Slight; Mean Platelet Volume 9.1; Monocytes # (A) 0.7 k/uL (0-1.0); Monocytes % (A) 7 %; Neutrophils # (A) 6.4 k/uL (1.3-7.7); Neutrophils % (A) 69 %; Platelet Count 393 k/uL (150-450); RBC 3.99 m/uL (4.30-5.90); RDW 18.4 % (11.5-15.5); WBC 9.3 k/uL (3.8-10.6)
--- NOTE | 2024-02-22 15:16 | XR ---
EXAMINATION TYPE: XR KUB DATE OF EXAM: 02/22/2024 2:57 PM CLINICAL INDICATION:Male, 68 years old with history of abdominal pain; [facility] COMPARISON: 08/20/2019. TECHNIQUE: One radiographic view of the abdomen was obtained. FINDINGS: There is a large stool burden, otherwise, the bowel gas pattern is nonspecific without dila kadi loops of small or large bowel. . Fecal material and gas are demonstrated throughout the colon and rectum. There is no evidence for organomegaly or pneumoperitoneum. The osseous structures are intact. No ab normal calcifications are present. IMPRESSION: Large stool burden throughout the colon otherwise, nonspecific bowel gas pattern without radiographic evidence for acute process.
[2024-02-22 15:29] LABS: ALT 22 U/L (4-49); African American GFR (CKD) >90 (>60 ml/min/1.73 sqM); Albumin 3.4 g/dL (3.5-5.0); Amylase 37 U/L (30-110); Anion Gap 5 mmol/L; Blood Urea Nitrogen 33 mg/dL (9-20); Calcium 9.3 mg/dL (8.4-10.2); Carbon Dioxide 31 mmol/L (22-30); Chloride 101 mmol/L (98-107); Glucose 71 mg/dL (74-99); Lipase 41 U/L (23-300); Non-African American GFR(CKD) >90 (>60 ml/min/1.73 sqM); Sodium 137 mmol/L (137-145); Total Protein 6.1 g/dL (6.3-8.2)
[2024-02-22 15:39] LABS: Potassium 5.1 mmol/L (3.5-5.1)
[2024-02-22 15:40] LABS: AST 65 U/L (17-59); Alkaline Phosphatase 54 U/L (38-126)
--- NOTE | 2024-02-22 15:51 | ED ---
General Adult HPI - General Chief complaint: Abdominal Pain Stated complaint: Weakness Time Seen by Provider: 02/22/24 14:10 Source: EMS, RN notes reviewed, old records reviewed Mode of arrival: EMS - History of Present Illness Initial comments: Radiology 68-year-old male with a history of multiple medical issues including mental retardation COPD hypertension he is a smoker who was sent in from his care facility because of lethargy and possible complaints of abdominal pain the patient is a poor historian denies abdominal pain on my evaluation first he does have no reports of fever chills nausea vomiting or other symptoms. - Related Data Home Medications Medication Instructions Recorded Confirmed Divalproex [Depakote] 250 mg PO DAILY@12/16/02/22/24 Calcium Carb/Vitamin D3/Vit K1 1 tab PO DAILY@79902/22/24 02/22/24 [Citracal-D3 500 mg Soft Chew] Cholecalciferol [Vitamin D3 (25 25 mcg PO DAILY@79902/22/24 02/22/24 Mcg = 1000 Iu)] Citalopram Hydrobromide [CeleXA] 40 mg PO DAILY@79902/22/24 02/22/24 Divalproex [Depakote] 750 mg PO HS@199902/22/24 02/22/24 Famotidine [Pepcid] 20 mg PO BID@799,199902/22/24 02/22/24 Hydrocortisone Cream 1 applic TOPICAL BID@799,199902/22/24 02/22/24 [Hydrocortisone 2.5% Cream] Ketoconazole 2% Shampoo [Nizoral] 1 applic TOPICAL DIRECTED 02/22/24 02/22/24 Levothyroxine Sodium [Synthroid] 25 mcg PO DAILY@79902/22/24 02/22/24 Melatonin 5 mg PO HS@199902/22/24 02/22/24 Montelukast [Singulair] 10 mg PO HS@199902/22/24 02/22/24 QUEtiapine [SEROquel] 50 mg PO HS@199902/22/24 02/22/24 amLODIPine [Norvasc] 5 mg PO DAILY@79902/22/24 02/22/24 busPIRone HCL 15 mg PO TID@08,16,20 02/22/24 02/22/24 Allergies Allergy/AdvReac Type Severity Reaction Status Date / Time Penicillins Allergy Unknown Verified 02/22/24 17:14 Review of Systems ROS Statement: Those systems with pertinent positive or pertinent negative responses have been documented in the HPI. ROS Other: All systems not noted in ROS Statement are negative. 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 History of Any Multi-Drug Resistant Organisms: None Reported Past Surgical History: Prostate Surgery Additional Past Surgical History / Comment(s): Cystoscopy/TURP, EGD/colonoscopy with benign polypectomy, hemorrhoidectomy, L toes repaired-partial amp, Past Anesthesia/Blood Transfusion Reactions: No Reported Reaction Past Psychological History: Bipolar, Depression, Schizoaffective Disorder Smoking Status: Current every day smoker Past Alcohol Use History: None Reported Past Drug Use History: None Reported - Past Family History Mother Family Medical History: Cancer Additional Family Medical History / Comment(s): Mother had colon cancer. Father History Unknown: Yes General Exam - General Exam Comments Initial Comments: Well-developed frail-appearing male who is awake and alert but for the most part nonverbal General appearance: alert, in no apparent distress Head exam: Present: atraumatic, normocephalic, normal inspection Eye exam: Present: normal appearance, PERRL, EOMI. Absent: scleral icterus, conjunctival injection, periorbital swelling ENT exam: Present: mucous membranes dry Neck exam: Present: normal inspection, full ROM, other. Absent: tenderness, meningismus, lymphadenopathy Respiratory exam: Present: normal lung sounds bilaterally. Absent: respiratory distress, wheezes, rales, rhonchi, stridor Cardiovascular Exam: Present: regular rate, normal rhythm, normal heart sounds. Absent: systolic murmur, diastolic murmur, rubs, gallop, clicks GI/Abdominal exam: Present: soft, normal bowel sounds. Absent: distended, tenderness, guarding, rebound, rigid Extremities exam: Present: normal inspection, full ROM, normal capillary refill. Absent: tenderness, pedal edema, joint swelling, calf tenderness Back exam: Present: normal inspection Neurological exam: Present: alert, altered, CN II-XII intact Psychiatric exam: Present: normal affect, normal mood Skin exam: Present: warm, dry, intact, normal color. Absent: rash Course Vital Signs 02/22/24 02/22/24 02/22/24 13:49 16:20 18:25 Temperature 97.5 F L Pulse Rate 72 65 75 Respiratory 18 18 18 Rate Blood Pressure 128/84 130/97 112/63 O2 Sat by Pulse 97 96 98 Oximetry 02/22/24 19:38 Temperature Pulse Rate 67 Respiratory 18 Rate Blood Pressure 127/65 O2 Sat by Pulse 97 Oximetry Medical Decision Making - Medical Decision Making Patient demonstrates evidence of dehydration and obstipation. Patient will be discharged with instructions for increasing oral fluids. Was pt. sent in by a medical professional or institution (, PA, DOUGHNUT MACHINE OPERATOR, urgent care, hospital, or skilled nursing...) When possible be specific @ -No Did you speak to anyone other than the patient for history (EMS, parent, family, police, friend...)? What history was obtained from this source @ -MS personnel Did you review nursing and triage notes (agree or disagree)? Why? @ -I reviewed and agree with nursing and triage notes Were old charts reviewed (outside hosp., previous admission, EMS record, old EKG, old radiological studies, urgent care reports/EKG's, skilled nursing records)? Report findings @ -Old charts were reviewed Differential Diagnosis (chest pain, altered mental status, abdominal pain women, abdominal pain men, vaginal bleeding, weakness, fever, dyspnea, syncope, headache, dizziness, GI bleed, back pain, seizure, CVA, palpatations, mental health, musculoskeletal)? @ -No pain] EKG interpreted by me (3pts min.). @ -Not indicated X-rays interpreted by me (1pt min.). @ -KUB shows nonspecific pattern increased stool on my interpretation CT interpreted by me (1pt min.). @ -None done U/S interpreted by me (1pt. min.). @ -None done What testing was considered but not performed or refused? (CT, X-rays, U/S, labs)? Why? @ -None What meds were considered but not given or refused? Why? @ -None Did you discuss the management of the patient with other professionals (professionals i.e. , PA, DOUGHNUT MACHINE OPERATOR, lab, RT, psych nurse, social services analyst, fall intern, teacher, sea air land officer, case hardener)? Give summary @ -No Was smoking cessation discussed for >3mins.? @ -No Was critical care preformed (if so, how long)? @ -No Were there social determinants of health that impacted care today? How? (Homelessness, low income, unemployed, alcoholism, drug addiction, transportation, low edu. Level, literacy, decrease access to med. care, long-term, rehab)? @ -No Was there de-escalation of care discussed even if they declined (Discuss DNR or withdrawal of care, Hospice)? DNR status @ -No What co-morbidities impacted this encounter? (DM, HTN, Smoking, COPD, CAD, Cancer, CVA, ARF, Chemo, Hep., AIDS, mental health diagnosis, sleep apnea, morbid obesity)? @ -Interpretation, COPD, hypertension, smoker Was patient admitted / discharged? Hospital course, mention meds given and route, prescriptions, significant lab abnormalities, going to OR and other pertinent info. @ -Hospital course was discharged Undiagnosed new problem with uncertain prognosis? @ -No Drug Therapy requiring intensive monitoring for toxicity (Heparin, Nitro, Insulin, Cardizem)? @ -No Were any procedures done? @ -No Diagnosis/symptom? @ -Dehydration, obstipation Acute, or Chronic, or Acute on Chronic? @ - Uncomplicated (without systemic symptoms) or Complicated (systemic symptoms)? @ -Default Side effects of treatment? @ -No Exacerbation, Progression, or Severe Exacerbation? @ -No Poses a threat to life or bodily function? How? (Chest pain, USA, GA, pneumonia, PE, COPD, DKA, ARF, appy, cholecystitis, CVA, Diverticulitis, Homicidal, Suicidal, threat to staff... and all critical care pts) @ -No - Lab Data Result diagrams: 02/22/24 14:40 02/22/24 14:40 Lab Results 02/22/24 02/22/24 02/22/24 Range/Units 14:40 14:40 14:40 WBC 9.3 (3.8-10.6) k/uL RBC 3.99 L (4.30-5.90) m/uL Hgb 12.2 L (13.0-17.5) gm/dL Hct 38.6 L (39.0-53.0) % MCV 96.8 (80.0-100.0) fL MCH 30.5 (25.0-35.0) pg MCHC 31.5 (31.0-37.0) g/dL RDW 18.4 H (11.5-15.5) % Plt Count 393 (150-450) k/uL MPV 9.1 Neutrophils % 69 % Lymphocytes % 21 % Monocytes % 7 % Eosinophils % 1 % Basophils % 1 % Neutrophils # 6.4 (1.3-7.7) k/uL Lymphocytes # 1.9 (1.0-4.8) k/uL Monocytes # 0.7 (0-1.0) k/uL Eosinophils # 0.1 (0-0.7) k/uL Basophils # 0.1 (0-0.2) k/uL Hypochromasia Marked Anisocytosis Slight Macrocytosis Slight Sodium 137 (137-145) mmol/L Potassium 5.1 (3.5-5.1) mmol/L Chloride 101 (98-107) mmol/L Carbon Dioxide 31 H (22-30) mmol/L Anion Gap 5 mmol/L BUN 33 H (9-20) mg/dL Creatinine 0.64 L (0.66-1.25) mg/dL Est GFR (CKD-EPI)AfAm >90 (>60 ml/min/1.73 sqM) Est GFR (CKD-EPI)NonAf >90 (>60 ml/min/1.73 sqM) Glucose 71 L (74-99) mg/dL Plasma Lactic Acid Gurmeet 1.3 (0.7-2.0) mmol/L Calcium 9.3 (8.4-10.2) mg/dL Total Bilirubin 1.0 (0.2-1.3) mg/dL AST 65 H (17-59) U/L ALT 22 (4-49) U/L Alkaline Phosphatase 54 (38-126) U/L Troponin I (0.000-0.034) ng/mL Total Protein 6.1 L (6.3-8.2) g/dL Albumin 3.4 L (3.5-5.0) g/dL Amylase 37 (30-110) U/L Lipase 41 (23-300) U/L Urine Color Urine Appearance (Clear) Urine pH (5.0-8.0) Ur Specific Cliff (1.001-1.035) Urine Protein (Negative) Urine Glucose (UA) (Negative) Urine Ketones (Negative) Urine Blood (Negative) Urine Nitrite (Negative) Urine Bilirubin (Negative) Urine Urobilinogen (<2.0) mg/dL Ur Leukocyte Esterase (Negative) Urine RBC (0-5) /hpf Urine WBC (0-5) /hpf Ur Squamous Epith Cells (0-4) /hpf Urine Mucus (None) /hpf 02/22/24 02/22/24 Range/Units 14:40 18:55 WBC (3.8-10.6) k/uL RBC (4.30-5.90) m/uL Hgb (13.0-17.5) gm/dL Hct (39.0-53.0) % MCV (80.0-100.0) fL MCH (25.0-35.0) pg MCHC (31.0-37.0) g/dL RDW (11.5-15.5) % Plt Count (150-450) k/uL MPV Neutrophils % % Lymphocytes % % Monocytes % % Eosinophils % % Basophils % % Neutrophils # (1.3-7.7) k/uL Lymphocytes # (1.0-4.8) k/uL Monocytes # (0-1.0) k/uL Eosinophils # (0-0.7) k/uL Basophils # (0-0.2) k/uL Hypochromasia Anisocytosis Macrocytosis Sodium (137-145) mmol/L Potassium (3.5-5.1) mmol/L Chloride (98-107) mmol/L Carbon Dioxide (22-30) mmol/L Anion Gap mmol/L BUN (9-20) mg/dL Creatinine (0.66-1.25) mg/dL Est GFR (CKD-EPI)AfAm (>60 ml/min/1.73 sqM) Est GFR (CKD-EPI)NonAf (>60 ml/min/1.73 sqM) Glucose (74-99) mg/dL Plasma Lactic Acid Gurmeet (0.7-2.0) mmol/L Calcium (8.4-10.2) mg/dL Total Bilirubin (0.2-1.3) mg/dL AST (17-59) U/L ALT (4-49) U/L Alkaline Phosphatase (38-126) U/L Troponin I <0.012 (0.000-0.034) ng/mL Total Protein (6.3-8.2) g/dL Albumin (3.5-5.0) g/dL Amylase (30-110) U/L Lipase (23-300) U/L Urine Color Yellow Urine Appearance Clear (Clear) Urine pH 6.0 (5.0-8.0) Ur Specific Cliff 1.031 (1.001-1.035) Urine Protein Trace H (Negative) Urine Glucose (UA) Negative (Negative) Urine Ketones 1+ H (Negative) Urine Blood Moderate H (Negative) Urine Nitrite Negative (Negative) Urine Bilirubin Negative (Negative) Urine Urobilinogen >12.0 (<2.0) mg/dL Ur Leukocyte Esterase Negative (Negative) Urine RBC 29 H (0-5) /hpf Urine WBC 2 (0-5) /hpf Ur Squamous Epith Cells <1 (0-4) /hpf Urine Mucus Rare H (None) /hpf Disposition Clinical Impression: Constipation, Dehydration Disposition: HOME SELF-CARE Condition: Good Instructions (If sedation given, give patient instructions): Dehydration (ED), Constipation (ED) Is patient prescribed a controlled substance at d/c from ED?: No Referrals: None,Stated [REFERRING] - 1-2 days Time of Disposition: 20:09 Decision Date: 02/22/24 Decision Time: 20:09
[2024-02-22] MEDS: SODIUM CHLORIDE 0.9% 1,000 ML IV STA ×2 (16:12→18:21)
[2024-02-22 19:31] LABS: Appearance,Urine Clear (Clear); Bilirubin,Urine Negative (Negative); Blood,Urine Moderate (Negative); Color,Urine Yellow; Glucose,Urine (UA) Negative (Negative); Ketones,Urine 1+ (Negative); Leukocyte Esterase,Urine Negative (Negative); Mucus,Urine Rare /hpf; Nitrite,Urine Negative (Negative); Protein,Urine Trace (Negative); RBC,Urine 29 /hpf (0-5); Specific Gravity,Urine 1.031 (1.001-1.035); Squamous Epithelial Cell,Urine <1 /hpf (0-4); Urobilinogen,Urine >12.0 mg/dL (<2.0); WBC,Urine 2 /hpf (0-5)
[2024-02-22 21:10] VITALS: BP 117/64; PULSE 55; RESP 20; TEMP 97.1
== END 2024-02-22 22:29 | disposition home or self-care (01) ==
LOC: EC 13:46
DX: K59.00 Constipation, unspecified (principal); E86.0 Dehydration; I10 Essential (primary) hypertension; J44.89 Other specified chronic obstructive pulmonary disease; F17.200 Nicotine dependence, unspecified, uncomplicated; Z79.899 Other long term (current) drug therapy; Z88.0 Allergy status to penicillin; Z86.73 Personal history of transient ischemic attack (TIA), and cerebral infarction without residual deficits
CPT/HCPCS: 36415; 74018; 80053; 81001; 82150; 83605; 83690; 84484; 85025; 96360; 96361; 99284